=== PATIENT | female | born 1990 | race Caucasian/White ===

== ENCOUNTER 2023-07-07 03:06 | Emergency (ER) | payer MEDICAID, SELFPAY ==
[2023-07-07 03:07] VITALS: BP 129/74; PULSE 129; RESP 22; TEMP 37.1; O2SAT 96; BMI 37.3
--- NOTE | 2023-07-07 03:18 | RAD_ITS ---
INDICATION: chest pain EXAMINATION/TECHNIQUE: X-RAY - XR Chest 1 View COMPARISON: 01/05/2011. FINDINGS: LINES/DEVICES: None. LUNGS: No consolidation or evidence of an effusion. No evidence of edema or a pneumothorax. MEDIASTINUM AND CARDIOVASCULAR STRUCTURES: Cardiac silhouette is normal in size and contour. Mediastinum is unremarkable. BONES AND SOFT TISSUES: No acute abnormality. RAD/Chest 1 View (Portable) IMPRESSION: No evidence of cardiopulmonary disease. Electronically Signed: Raphael Veras DO at 4:18 EDT ,
--- NOTE | 2023-07-07 03:18 | EKG12_ITS ---
Test Reason : DYSRHYTHMIA Blood Pressure : / mmHG Vent. Rate : 116 BPM Atrial Rate : 116 BPM P-R Int : 124 ms QRS Dur : 080 ms QT Int : 306 ms P-R-T Axes : 053 037 003 degrees QTc Int : 425 ms Sinus tachycardia Otherwise normal ECG Confirmed by Lizandro Edmonds ([id number]), electronic news gathering editor LAKSHMI GAO ([id number]) on 07/09/2023 8:16:29 AM Referred By: LESTER Confirmed By:Lizandro Edmonds
[2023-07-07 03:35] VITALS: O2SAT 98
[2023-07-07 03:38] LABS: Absolute Lymphocyte Count 1.59 X10^3/uL (0.83-4.51); Absolute Neutrophil Count 14.3 X10^3/uL (2.0-7.7); Basophil# 0.06 X10^3/uL; Basophil% 0.3 % (0-1); Eosinophil# 0.17 X10^3/uL; Hematocrit 34.9 % (37-47); Hemoglobin 11.1 g/dL (12.0-15.0); Lymphocyte # 1.59 X10^3/ul (0.83-4.51); Lymphocyte % 9.1 % (19-41); Mean Corp Hgb Conc 31.8 g/dL (32-36); Mean Corpuscular Hgb 26.3 pg (27.0-32.0); Mean Corpuscular Volume 82.7 fL (81-99); Mean Platelet Vol. 9.8 fl (6.2-12.0); Monocyte# 1.32 X10^3/uL; Monocyte% 7.6 % (0-10); NRBC Flagged by Analyzer 0 % (0-5); Neutrophil # 14.26 X10^3/uL (2.7-7.7); Neutrophil % 81.6 % (47-70); Platelet Count 321 K/mm3 (150-450); RBC Distribution Width CV 13.4 % (11.6-14.6); RBC Distribution Width SD 40.4 fl (35.1-43.9); Red Blood Count 4.22 M/mm3 (4.2-5.4); White Blood Count 17.5 K/mm3 (4.4-11.0)
--- NOTE | 2023-07-07 03:43 | EX.ED.DYSGE1 ---
HPI History of Present Illness Chief Complaint: Cold Sx PFSH PFSH Home Medications albuterol sulfate 90 mcg/actuation aerosol inhaler 2 puff inhalation Q4H PRN PRN shortness of breath or wheezing 07/07/23 [History Last Taken Unknown] desogestrel 0.15 mg-ethinyl estradiol 0.03 mg tablet (Apri) 1 tab PO DAILY 07/07/23 [History Last Taken Unknown] Allergy/AdvReac Type Severity Reaction Status Date / Time azithromycin Allergy Hives Verified 07/07/23 03:16 Social History Smoking Status: Never smoker EXAM Physical Exam Const Vital Signs: 07/07/23 03:07 07/07/23 03:17 07/07/23 03:35 Temperature 98.7 F Temperature Source Oral Pulse Rate 129 H Respiratory Rate 22 H Respiratory Pattern Normal Blood Pressure 129/74 H Blood Pressure Mean 92 Pulse Ox 96 98 Oxygen Delivery Method Room Air Room Air 07/07/23 06:11 Temperature Temperature Source Pulse Rate 98 Respiratory Rate 18 Respiratory Pattern Blood Pressure 110/66 Blood Pressure Mean 80 Pulse Ox 94 Oxygen Delivery Method Room Air MDM MDM MDM Narrative Medical decision making narrative: HISTORY OF PRESENT ILLNESS: 33-year-old female presents with acute onset of chest pain in the setting of recent viral URI. She endorses headache, sore throat, cough and congestion. States she has sick contacts of former son at home. States prior to arrival she had sharp and pressure-like pain that radiated across her chest. Denies any syncope. Denies any unilateral leg swelling. The patient denies recent surgery in the last 4 weeks or immobilization in the last 3 days, denies previous diagnosis of DVT or PE, hemoptysis, unilateral leg swelling or malignancy with treatment the last 6 months or palliative. Notes she uses oral contraceptives of estrogen-based. Patient denies sudden onset of pain, no tearing sensation, no migratory symptoms, no new numbness, weakness or loss of sensation. Patient denies family history or personal history of Connective tissue disorders (Marfan's Syndrome, De Danlos etc). REVIEW OF SYSTEMS: Pertinent positives: chest pain, Sore throat, cough, congestion Pertinent negatives: Headache, syncope, focal weakness, vomiting, bleeding diathesis PHYSICAL EXAM: Nursing triage notes reviewed, Vital signs reviewed Constitutional: please see mdm HENT: MMM Eyes: Pupils equal round and reactive to light, Extraocular muscles intact Neck: No stridor, no JVD, full neck ROM Lungs: Clear to auscultation, No wheezing or rales. No increased work of breathing, no conversational dyspnea, no accessory muscle use, no nasal flaring. No respiratory distress noted Heart: Regular rate and rhythm, No murmurs, No rubs and No gallops, 2+ distal pulses (radial, femoral, posterior tibial) in all extremities Abdomen: Soft, there is no tenderness, rigidity, rebound or guarding, no obvious peritoneal signs, no palpable pulsatile abdominal masses, no auscultated abdominal bruit : No CVAT Extremities: No edema Neuro: No focal neurological deficits, cranial nerves II through XII intact, 5/5 strength in all extremities. Intact sensation to light touch in all extremities, 2+ reflexes bilateral patella tendons. Normal gait. No ataxia. Skin: No rash or lesions noted MEDICAL DECISION MAKING: Chief Complaint: Chest pain, viral URI symptoms External records reviewed: No recent [place] imaging of the chest Factors affecting care: None Social determinants of health: none History obtained from others: EMS Consults: none [facility] Narrative: Patient was initially afebrile but tachypneic and tachycardic. No focal cardiopulmonary normalities noted on exam. No pulse deficits, no stigmata of VTE. There is no clinical evidence to suggest aortic dissection with no pulse deficits, no focal neurologic deficits, pain is not ripping or tearing. I considered the following differential diagnosis: Arrhythmia, anemia, pneumonia, COVID, flu, RSV, PE, dissection I considered PE however thought this was less likely given patient's low risk Wells score, nonischemic EKG with no signs of right heart strain ALL IMAGES (IF OBTAINED) HAVE BEEN PERSONALLY REVIEWED AND INTERPRETED BY MYSELF. EKG was sinus tachycardia, normal axis, no intervals, no STEMI CBC with marked leukocytosis, mild anemia, no thrombocytopenia BMP without evidence of significant electrolyte abnormalities, no anion gap, no acute kidney injury. High-sensitivity troponin is negative, no evidence of myocardial ischemia BNP within normal I have personally reviewed the patient's chest x-ray. Chest x-ray is unremarkable for pulmonary edema, pneumothorax, pneumonia or focal cardiopulmonary abnormality. COVID-positive The synthesis of the patient's history, physical exam, labs images suggest COVID-19 infection. Low suspicion for life-limiting etiology the patient was hemodynamically stable. Initial tachycardia, tachypnea resolved after fluids and Toradol. Patient is appropriate discharge home. The patient and/or family, caregivers express understanding. The patient and/or family, caregivers agrees with the plan. Shared decision making: I will have a discussion with the patient and or visitors regarding risk/benefits of further testing or admission. They will be made aware of of the risk/benefits inherent in this decision they will be given the opportunity to voice understanding. Total critical care time today provided was at least 0 minutes. This excludes separately billable procedures. Critical care time (if documented) is secondary to the patient having high probability of clinically significant/life threatening deterioration in the patient's condition which required my urgent intervention. Impression: 1. Viral URI 2. Tachycardia 3. Tachypnea 4. COVID-19 Dispo: Discharge This note was generated with [employer] dictation software. It may contain incorrect words, spelling, and punctuation that were not noted in review of the chart prior to signing. Lab Data Labs: Laboratory Results - last 24 hr 07/07/23 03:30 WBC 17.5 H RBC 4.22 Hgb 11.1 L Hct 34.9 L MCV 82.7 MCH 26.3 L MCHC 31.8 L RDW Std Deviation 40.4 RDW Coeff of Louis 13.4 Plt Count 321 MPV 9.8 Immature Gran % (Auto) 0.400 Neut % (Auto) 81.6 H Lymph % (Auto) 9.1 L [place] % (Auto) 7.6 Eos % (Auto) 1.0 Baso % (Auto) 0.3 Absolute Neuts (auto) 14.3 H Absolute Lymphs (auto) 1.59 Nucleated RBC % 0 Sodium 137 Potassium 3.8 Chloride 104 Carbon Dioxide 24.0 Anion Gap 9 BUN 7 Creatinine 0.48 L Estim Creat Clear Calc 188.59 Est GFR (MDRD) Af Amer 192 Est GFR (MDRD) Non-Af 158 BUN/Creatinine Ratio 14.7 Glucose 143 H Calcium 8.8 Troponin I High Sens 4 B-Natriuretic Peptide 24.4 Radiography Diagnostic Testing: Clinical Impression(s) from Imaging Studies Chest X-Ray 07/07/23 03:18 IMPRESSION: No evidence of cardiopulmonary disease. Electronically Signed: Raphael Veras DO at 4:18 EDT , Discharge Plan Triage Chief Complaint: Cold Sx ED Provider: Favio Thomas Dx/Rx/DC Orders Instructions: Coronavirus Disease 2019 (COVID-19): Overview Prescriptions: No Action albuterol sulfate 90 mcg/actuation HFA aerosol inhaler 2 puff INHALATION Q4H PRN PRN (Reason: shortness of breath or wheezing) desogestrel-ethinyl estradiol [Apri] 0.15-0.03 mg tablet 1 tab PO DAILY Stand Alone Forms: ED Work / School Excuse Primary Care Provider: Rohit Woodward Referrals: Rohit Woodward MD [Primary Care Provider] - Activity Restrictions/Additional Instructions: Thank you for trusting us with your care today! Please take Tylenol (2 pills, 650 mg), ibuprofen (2 pills, 400 mg) every 6 hours as needed for pain and fever control. Please return to the emergency department if your symptoms change or worsen. Please follow with your primary care physician for further outpatient evaluation and management. Disposition Disposition: Home, Self Care Discharge Date/Time: 07/07/23 06:35
--- OUTSIDE RECORDS SUMMARY | 2023-07-07 03:43 | XMS RPT_ITS | CCD ---
Author Name Unknown Address [address] [place] [address] Organization [facility] Care Team Providers Care Peanut Vendor Name Role Phone BRAYDENRHONDA Jayla Unavailable Unavailable *SELF, REFERRED Unavailable Unavailable Nella Pineda Unavailable Unavailable Ronn Rohit PELAYO A Primary Care Provider [phone] Rohit Brody MD A Primary Care Provider [phone] Rohit Brody MD A Primary Care Provider [phone] Unavailable Primary Care Provider Unavailabl e RONN, ROHIT A Referring Unavailable RONN, ROHIT A Attending Unavailable RONN, ROHIT A Referring Unavailable RONN, ROHIT A Primary Care Unavailable RONN, ROHIT A Referring Unavailable RONN, ROHIT A Primary Care Unavailable GERRY ROE Referring Unavailable RONN, ROHIT A Primary Care Unavailable RONN, ROHIT A Primary Care Unavailable RONN, ROHIT A Attending Unavailable RONN, ROHIT A Primary Care Unavailable RONN, ROHIT A Primary Care Unavailable RONN, ROHIT A Primary Care Unavailable RONN, ROHIT A Attending Unavailable RONN, ROHIT A Primary Care Unavailable RONN, ROHIT A Primary Care Unavailable RONN, ROHIT A Referring Unavailable JUAN JUNE Attending Unavailable RONN, ROHIT A Primary Care Unavailable SELF Referring Unavailable RONN, ROHIT A Primary Care Unavailable HIRA BECKFORD Attending Unavailable RONN, ROHIT A Attending Unavailable RONN, ROHIT A Primary Care Unavailable Allergies Allergy Classification Reported Allergen(s) Allergy Type Date of Onset Reaction(s) Facility (20 sources) Acetaminophen / HYDROcodone; Translations: [HYDROCODONE-ACETA MINOPHEN] Drug Allergy 10-03-2019 [facility] (20 sources) Azithromycin; Translations: [AZITHROMYCIN] Drug Allergy 02-02-2013 [facility] (20 sources) Latex; Translations: [LATEX] Drug Allergy 02-02-[address] [facility] Work Phone: (20 sources) metFORMIN; Translations: [METFORMIN] Drug Allergy 08-10-2019 [facility] Work Phone: (5 sources) Penicillins; Translations: [PENICILLINS] Drug Allergy 05-06-2018 [facility] Work Phone: (20 sources) Penicillins Drug Allergy 05-06-2018 [facility] Work Phone: Medications Current Medications Medication Drug Class(es) Dates Sig (Normalized) Sig (Original) acetaminophen 325 mg / butalbital 50 mg / caffeine 40 mg oral tablet (12 sources) Barbiturate, Central Nervous System Stimulant, Methylxanthine Start: 05-15-2023 End: 06-14-2023 take 1 tablet by mouth every four hours as needed for headache acetaminophen 325 mg-caffeine 40 mg-butalbital 50 mg (FIORICET) per tablet Take 1 tablet by mouth every 4 hours as needed for headache. 30 tablet 0 05/15/2023 06/14/2023 Active Completed/Discontinued Medications Medication Drug Class(es) Dates Sig (Normalized) Sig (Original) [id number] 200 actuat albuterol 0.09 mg/actuat metered dose inhaler (20 sources) beta2-Adrenergic Agonist Start: 11-27-2022 take 2 puff(s) by mouth every four hours as needed albuterol HFA (PROVENTIL HFA, VENTOLIN HFA) 90 mcg/actuation inhaler Indications: Bronchitis TAKE 2 PUFFS BY MOUTH EVERY 4 HOURS NEEDED 18 Each 1 11/27/2022 Active Problems Active Problems Problem Classification Problem Date Documented Da te Episodic/Chronic Asthma (20 sources) Asthma; Translations: [Unspecified asthma, uncomplicated] 03-07-2021 Chronic Chronic obstructive pulmonary disease and bronchiectasis (4 sources) Bronchitis; Translations: [Bronchitis, not specified as acute or chronic] Episodic Deficiency and other anemia (20 sources) Anemia; Translations: [Anemia, unspecified] 03-07-2021 Episodic Deficiency and other anemia (2 sources) Iron deficiency anemia; Translations: [Iron deficiency anemia, unspecified] 03-18-2023 Episodic Diabetes mellitus without complication (1 source) Hyperglycemia, unspecified; Translations: [Hyperglycemia] Onset: 05-15-2023 Episodic E Codes: Adverse effects of medical drugs (20 sources) Penicillin adverse reaction; Translations: [Adverse effect of penicillins, initial encounter] 03-07-2021 Episodic Headache; including migraine (3 sources) Migraine; Translations: [Other migraine, not intractable, without status migrainosus] Onset: 12-20-2022 11-29-2022 Chronic Inflammation; infection of eye (except that caused by tuberculosis or sexually transmitteddisease) (2 sources) Acute infectious conjunctivitis; Translations: [Unspecified acute conjunctivitis, bilateral] Episodic Mood disorders (20 sources) Depressive disorder; Translations: [Depression] 03-07-2021 Chronic Nutritional deficiencies (1 source) Iron deficiency; Translations: [Iron deficiency] 01-14-2023 Episodic Other endocrine disorders (3 sources) Polycystic ovary syndrome; Translations: [Polycystic ovarian syndrome] Chronic Other female genital disorders (3 sources) Abnormal uterine bleeding; Translations: [Abnormal uterine and vaginal bleeding, unspecified] Chronic Other nutritional; endocrine; and metabolic disorders (20 sources) Body mass index 30+ - obesity; Translations: [Obesity, unspecified] Onset: 2018 03-01-2021 Chronic Other upper respiratory disease (2 sources) Allergic rhinitis due to pollen; Translations: [Allergic rhinitis due to pollen] 04-05-2023 Chronic Other upper respiratory infections (1 source) Pharyngitis; Translations: [Acute pharyngitis, unspecified] Episodic Past or Other Problems Problem Classification Problem Date Documented Date Episodic/Chronic Acute and chronic tonsillitis (20 sources) Acute tonsillitis; Translations: [Acute tonsillitis, unspecified] Onset: 05-07-2022 05-07-2022 Episodic Allergic reactions (19 sources) Allergy to penicillin; Translations: [Allergy status to penicillin] Onset: 05-07-2022 05-07-2022 Episodic Deficiency and other anemia (2 sources) Iron deficiency anemia, unspecified; Translations: [Iron deficiency anemia, unspecified iron deficiency anemia type] Onset: 03-07-2021 Episodic Deficiency and other anemia (1 source) Anemia, unspecified; Translations: [Anemia, unspecified type] Onset: 03-07-2021 Episodic Diabetes or abnormal glucose tolerance complicating ; childbirth; or the puerperium (20 sources) History of gestational diabetes mellitus; Translations: [Personal history of gestational diabetes] Onset: 03-01-2021 03-01-2021 Episodic Early or threatened labor (20 sources) Threatened premature labor - not delivered ; Translations: [False labor, unspecified] Onset: 03-01-2021 03-05-2021 Episodic Other complications of (20 sources) RhD negative; Translations: [Other specified related conditions, unspecified trimester] Onset: 03-01-2021 03-01-2021 Episodic Residual codes; unclassified (20 sources) H/O: depression; Translations: [Personal history of other complications of , childbirth and the puerperium] Onset: 06-30-2021 06-30-2021 Episodic Results Test Name Value Interpretation Reference Range Facil ity Vital Signs Date Time Vital Sign Value Performing Clinician Faci lity 06-17-2023 11:10-0500 Diastolic blood pressure 60 mm[Hg] Juan June MD Work Phone: [facility] 06-17-2023 11:10-0500 Heart rate 68 /min Juan June MD Work Phone: [facility] 06-17-2023 11:10-0500 SaO2% (BldA) [Mass fraction] 98 % Juan June MD Work Phone: [facility] 06-17-2023 11:10-0500 Systolic blood pressure 103 mm[Hg] Juan June MD Work Phone: [facility] 06-17-2023 10:40-0500 Respiratory rate 16 /min Juan June MD Work Phone: [facility] 06-17-2023 09:21-0500 Body temperature 98.1 [degF] Juan June MD Work Phone: [facility] 05-31-2023 18:18-0500 Body temperature 97.3 [degF] Prince Wormald PA-C Work Phone: [facility] 05-31-2023 18:18-0500 Body weight 98.15 kg Prince Wormald PA-C Work Phone: [facility] 05-31-2023 18:18-0500 Diastolic blood pressure 71 mm[Hg] Prince Wormald PA-C Work Phone: [facility] 05-31-2023 18:18-0500 Heart rate 98 /min Prince Wormald PA-C Work Phone: [facility] 05-31-2023 18:18-0500 SaO2% (BldA) [Mass fraction] 98 % Prince Wormald PA-C Work Phone: [facility] 05-31-2023 18:18-0500 Systolic blood pressure 105 mm[Hg] Prince Wormald PA-C Work Phone: [facility] 04-05-2023 17:19-0500 Body temperature 98.6 [degF] Karen Ball WHEEL PRESSER.INFORMATION BROKER Work Phone: [facility] 04-05-2023 17:19-0500 Body weight 95.25 kg Karen Ball WHEEL PRESSER.INFORMATION BROKER Work Phone: [facility] 04-05-2023 17:19-0500 Diastolic blood pressure 81 mm[Hg] Karen Ball WHEEL PRESSER.INFORMATION BROKER Work Phone: [facility] 04-05-2023 17:19-0500 Heart rate 60 /min Akren Ball WHEEL PRESSER.INFORMATION BROKER Work Phone: [facility] 04-05-2023 17:19-0500 SaO2% (BldA) [Mass fraction] 95 % Karen Ball WHEEL PRESSER.INFORMATION BROKER Work Phone: [facility] 04-05-2023 17:19-0500 Systolic blood pressure 118 mm[Hg] Karen Ball WHEEL PRESSER.INFORMATION BROKER Work Phone: [facility] 10-23-2022 18:58-0400 Body height 154.9 cm Karen Ball WHEEL PRESSER.INFORMATION BROKER Work Phone: [facility] 10-23-2022 18:58-0400 Body weight 89.81 kg Karen Ball WHEEL PRESSER.INFORMATION BROKER Work Phone: [facility] 10-23-2022 18:58-0400 Diastolic blood pressure 73 mm[Hg] Karen Ball WHEEL PRESSER.INFORMATION BROKER Work Phone: [facility] 10-23-2022 18:58-0400 Heart rate 80 /min Karen Ball WHEEL PRESSER.INFORMATION BROKER Work Phone: [facility] 10-23-2022 18:58-0400 Systolic blood pressure 109 mm[Hg] Karen Ball WHEEL PRESSER.INFORMATION BROKER Work Phone: [facility] 04-10-2022 12:59-0500 Body height 154.9 cm Aleida Rytel WHEEL PRESSER.INFORMATION BROKER Work Phone: [facility] 04-10-2022 12:59-0500 Body temperature 98.1 [degF] Aleida Rytel WHEEL PRESSER.INFORMATION BROKER Work Phone: [facility] 04-10-2022 12:59-0500 Body weight 87.82 kg Aleida Rytel WHEEL PRESSER.INFORMATION BROKER Work Phone: [facility] 04-10-2022 12:59-0500 Diastolic blood pressure 66 mm[Hg] Aleida Rytel WHEEL PRESSER.INFORMATION BROKER Work Phone: [facility] 04-10-2022 12:59-0500 Heart rate 76 /min Aleida Rytel WHEEL PRESSER.INFORMATION BROKER Work Phone: [facility] 04-10-2022 12:59-0500 Respiratory rate 18 /min Aleida Rytel WHEEL PRESSER.INFORMATION BROKER Work Phone: [facility] 04-10-2022 12:59-0500 SaO2% (BldA) [Mass fraction] 98 % Aleida Rytel WHEEL PRESSER.INFORMATION BROKER Work Phone: [facility] 04-10-2022 12:59-0500 Systolic blood pressure 99 mm[Hg] Aleida Mauricio APRN.JESUS Work Phone: [facility] Encounters Encounter Date Encounter Type Care Provider Facility Start: 06-22-2023 Refvlad franks APRN.JESUS Work Phone: [facility] Procedures Date Procedure Procedure Detail Performing Clinician Start: 06-17-2023 Colonoscopy flx dx w /collj spec when pfrmd Rohit Brody MD Work Phone: Start: 03-20-2023 Assay of ferritin Vianey Brody MD Work Phone: Start: 03-20-2023 COMPLETE BLOOD COUNT WITH DIFFERENTIAL Rohit Brody MD Work Phone: Start: 10-23-2022 STREP A MOLECULAR (POC) [facility] Provider Start: 03-07-2021 Antibody screen Plan of Treatment Date Care Activity Detail Author Start: 02-13-2031 Urine microalbumin profile [facility] Start: 05-04-2026 PAP TESTING PAP TESTING [facility] Start: 05-04-2026 Screening for malign ant neoplasm of cervix Pap Testing [facility] Start: 05-15-2024 Annual PCP Team Extractor And Wringer Operator blanquita Disease Visit Annual PCP Team Chronic Disease Visit [facility] Start: 05-15-2024 Covid-19 Vaccine ( season) Covid-19 Vaccine ( season) [facility] Immunizations Immunization Date Immunization Notes Care Provider Fa juliaty 03-07-2021 RHO(D) immune globul in- IV or IM Hira Beckford MD Work Phone: [facility] 02-13-2021 influenza, injectabl e, quadrivalent, contains preservative Hira Beckford MD Work Phone: [facility] 02-13-2021 tetanus toxoid, redu mercedes diphtheria toxoid, and acellular pertussis vaccine, adsorbed Hira Beckford MD Work Phone: [facility] 02-13-2021 influenza virus vaccine, unspecified formulation Rohit Brody MD Work Phone: [facility] 12-28-2020 RHO(D) immune globul in- IV or IM Hira Beckford MD Work Phone: [facility] 10-22-2020 COVID-19 vaccine, ag e 12+ yr (PFIZER-BIONTECH - PURPLE TOP) Hira Beckford MD Work Phone: [facility] 09-29-2020 COVID-19 vaccine, ag e 12+ yr (PFIZER-BIONTECH - PURPLE TOP) Hira Beckford MD Work Phone: [facility] 02-20-2020 influenza, seasonal, injectable Hira Beckford MD Work Phone: [facility] 10-04-2019 RHO(D) immune globul in- IV or IM Hira Beckford MD Work Phone: [facility] 09-07-2019 tetanus toxoid, redu mercedes diphtheria toxoid, and acellular pertussis vaccine, adsorbed Hira Beckford MD Work Phone: [facility] 07-29-2019 RHO(D) immune globul in- IV or IM Hira Beckford MD Work Phone: [facility] 03-11-2019 RHO(D) immune globul in- IV or IM Hira Beckford MD Work Phone: [facility] 02-07-2019 influenza, injectabl e, quadrivalent, contains preservative Hira Beckford MD Work Phone: [facility] 01-05-2019 tetanus toxoid, redu mercedes diphtheria toxoid, and acellular pertussis vaccine, adsorbed Hira Beckford MD Work Phone: [facility] 02-19-2018 influenza virus vaccine, unspecified formulation Hira Beckford MD Work Phone: [facility] Work Phone: Payers Date Payer Category Payer Medicaid [id number] 2020 Medicaid [employer] [id number] 2020-Present [phone] [address] [place] [address] Medicaid [id number] 2020 Medicaid [id number] 2013 Unknown [id number] 1989 Unknown [id number] Unknown [id number] Social History Date Type Detail Facility Start: 02-02-2013 End: 01-14-2022 Tobacco smoking status FLIS Never smoked tobacco [facility] Start: 02-02-2013 End: 01-14-2022 Tobacco use and exposure Smokeless tobacco non-user [facility] Start: 07-15-2021 End: 06-17-2023 Alcohol intake Ex-drinker (finding) [facility] Start: 03-19-2020 End: 06-20-2022 History SDOH Alcohol Frequency 2 [facility] Start: 03-19-2020 End: 06-20-2022 History SDOH Alcohol Std Drinks 1 [facility] Start: 06-01-2019 End: 06-13-2019 History SDOH Social Connections Phone 5 [facility] Start: 06-01-2019 End: 06-20-2022 History SDOH Social Connections Baptism 3 [facility] Start: 06-01-2019 End: 06-20-2022 History SDOH Physical Activity DPW 0 [facility] Start: 05-31-2019 Education 15 [facility] Start: 1990 Sex Assigned At Female [facility] Start: 07-05-2021 End: 07-15-2021 Exposure to SARS-CoV-2 (event) Not sure [facility] Start: 06-20-2022 History SDOH Social Connections Phone 98 [facility] Start: 06-20-2022 History SDOH Social Connections Living 6 [facility] Start: 06-20-2022 End: 11-29-2022 History of Social function [facility] Start: 06-20-2022 End: 11-29-2022 Social connection and isolation panel [facility] In a typical week, h ow many times do you talk on the telephone with family, friends, or neighbors? Patient refused [facility] Do you belong to any clubs or organizations such as latter-day groups, unions, fraternal or athletic groups, or school groups? No [facility] Are you now , , , , never or living with a partner? [facility] How often to you hav e a drink containing alcohol? Monthly or less [facility] How many standard dr inks containing alcohol do you have on a typical day? 1 or 2 [facility] How often do you hav e 6 or more drinks on 1 occasion? Never [facility] Do you feel stress - tense, restless, nervous, or anxious, or unable to sleep at night because your mind is troubled all the time - these days [OSQ] Only a little [facility] (I/We) worried arsh er (my/our) food would run out before (I/we) got money to buy more. DK or Refused [facility] Start: 07-01-2018 Gender identity Identifies as female gender (finding) [facility] Start: 1990 Sex Assigned At Not on file [facility] Start: 06-17-2023 Alcohol Comment occasionally [facility] Clinical Notes 01-10-2021 to 06-24-2023 Telephone Encounter - Barbara Reynoso LPN - 06/24/2023 10:52 AM Viki Greene RN - 06/17/2023 10:30 AM Viki Greene RN - 06/17/2023 10:10 AM ESTPatient Instructions Note Date & Type Note Facility 06-24-2023 Miscellaneous Notes Last appointment: 05/15/23 Next appointment: n/a Pharmacy verified in Epic. Refill(s) requested: Requested Prescriptions Pending Prescriptions Disp Refills fluticasone (FLONASE) 50 mcg/actuation nasal spray [Pharmacy Med Name: FLUTICASONE PROP 50 MCG SPRAY] 48 mL 1 Sig: SPRAY 1 SPRAY INTO EACH NOSTRIL EVERY DAY Order(s) pended. Please advise. Barbara Reynoso LPN, [facility] documented in this encounter [facility] 06-17-2023 Note HNO ID: [id number] Author: VIKI RAMIREZ RN Service: ? Author Type: Registered Nurse Type: Nursing Progress Note Filed: 06/17/2023 10:37 Note Text: Resting quietly. Passing flatus. Abdomen soft. Denies complaints. Viki Ramirez RN [facility] 06-17-2023 Nurse Note Resting quietly. Passing flatus. Abdomen soft. Denies complaints. Viki Ramirez RN Arrived in phase II via cart. Left lateral position. Sedated, but responds to verbal stimuli. Color normal; skin warm and dry. Respirations wnl and unlabored. Abdomen soft and with + bowel sounds in quads X 4. Patient resting comfortably. Viki Ramirez RN documented in this encounter [facility] 06-17-2023 History and physical note Karen Fernandez is a 32 year old female presenting for Physical. 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 The frequency is settling down. But when they come on she has problems stopping them. Fioricet helps. Taking fioricet once per month. Has a headache 2-3 times per week. Imitrex didn't help. Gets nauseated with headaches. Hasn't tried anything else for the headaches. On OCP. Sees extension specialist. Hx of iron def anemia. Iron caused her to be constipated. Father has diverticulosis. No blood in stool. Sertraline working well for anxiety. Mood stable over all. Last 10 Encounter Wt Readings: Date: Wt: 05/15/2023 96.1 kg (211 lb 13.8 oz) 04/05/2023 95.3 kg (210 lb) 10/23/2022 89.8 kg (198 lb) 09/18/2022 88 kg (194 lb) 05/07/2022 86.2 kg (190 lb) 05/06/2022 86.2 kg (190 lb) 04/10/2022 87.8 kg (193 lb 9.6 oz) 01/14/2022 83 kg (183 lb) 10/13/2021 86.2 kg (190 lb) 07/15/2021 83.9 kg (185 lb) ASSESSMENT: (Z00.00) Well adult exam (primary encounter diagnosis) (D50.9) Iron deficiency anemia, unspecified iron deficiency anemia type (R73.9) Hyperglycemia (J45.20) Mild intermittent asthma without complication (Z87.59, Z86.59) History of depression (F41.9) Anxiety PLAN: Discussed preventative health care Recheck iron levels. Still thinking that it is likely from heavy periods but will get colonoscopy to ensure no masses or polyps Check A1c. Hx of diabetes with prior Continue meds for asthma. Needing inhaler rarely Mood stable. Refill meds Try zofran for migraines and nausea HISTORIES FAMILY HISTORY FAMILY HISTORY Problem Relation Age of Onset Thyroid Mother hypothyroid other (fibroid) Mother uterine other (thyroidectomy) Mother Diabetes Maternal Grandmother type 2 Diabetes Paternal Grandmother type 2 Breast Cancer Other 2 maternal great aunts w/ breast cancer Thyroid Sister hypothyroid Asthma Father PAST MEDICAL HISTORY PAST MEDICAL HISTORY Diagnosis Date Asthma Depression anxiety per pt Endometriosis PCOS (polycystic ovarian syndrome) S/P x2 PAST SURGICAL HISTORY PAST SURGICAL HISTORY Procedure Laterality Date ANESTH, SECTION SECTION HX 08/31/2008, 09/2019 x2 CRYOCAUTERY OF CERVIX 07/2012 IUD REMOVAL 2009 was in lower uterine segment LAPAROSCOPY, APPENDECTOMY 06/2011 (per pt-endometriosis excision- no record of this on record review) and appy; Dr. Nava TONSILLECTOMY HX age 6 SOCIAL HISTORY Social History Tobacco Use Smoking status: Never Smokeless tobacco: Never Vaping Use Vaping Use: Never used Substance Use Topics Alcohol use: Not Currently Drug use: No Allergies: ALLERGIES ALLERGIES Allergen Reactions Latex Rash Latex skin tests were negative on October 28, 2018. Latex specific IgE level will be obtained to evaluate further for possible IgE-mediated latex hypersensitivity. Metformin GI Upset Penicillins Hives Allergy skin tests to penicillin were negative on 10/28/18. On 11/04/18, patient c/o generalized itching without visible skin rash 25 minutes after taking a test dose of amoxicillin. Sxs resolved without treatment. Although overall the patient is at low risk for a severe, immediate, IgE-mediated reaction to penicillin, recommend that she take the first dose of a course of a penicillin antibiotic in the allergy dept with a 1 hr in-office observation period afterwards as a precaution. Zithromax [Azithrom* Hives Vicodin [Hydrocodon* GI Upset Medications: CURRENT MEDICATIONS APRI 0.15-0.03 mg per tablet take 1 tablet by mouth every day cetirizine (ZYRTEC) 10 mg tablet Take 1 tablet by mouth once daily. fluticasone (FLONASE ALLERGY RELIEF) 50 mcg/actuation nasal spray Use 1 Emerson in each nostril once daily. ferrous sulfate 325 mg (65 mg iron) tablet TAKE 1 TABLET BY MOUTH EVERY OTHER DAY albuterol HFA (PROVENTIL HFA, VENTOLIN HFA) 90 mcg/actuation inhaler TAKE 2 PUFFS BY MOUTH EVERY 4 HOURS NEEDED acetaminophen 325 mg-caffeine 40 mg-butalbital 50 mg (FIORICET) per tablet Take 1 tablet by mouth every 4 hours as needed for headache. sertraline (ZOLOFT) 100 mg tablet TAKE 1 TABLET BY MOUTH ONCE DAILY. sertraline (ZOLOFT) 50 mg tablet Take 1 tablet by mouth once daily. Combine with the 100 mg Zoloft dose. SUMAtriptan (IMITREX) 100 mg tablet Take 1 tablet by mouth as needed. (Patient not taking: Reported on 04/05/2023) REVIEW OF SYSTEMS GENERAL: No weight loss, malaise or fevers PHYSICAL EXAM BP 114/78 Pulse 80 Temp 36.1 C (97 F) Resp 16 Ht 154.9 cm (5' 1 ) Wt 96.1 kg (211 lb 13.8 oz) LMP 07/07/2021 SpO2 99% BMI 40.03 kg/m General Appearance: Well appearing, alert, in no acute distress, well-hydrated, well nourished.. Rohit Brody MD UPDATED HISTORY AND PHYSICAL EXAMINATION SERVICE DATE: 06/17/2023 SERVICE TIME: 9:40 AM PHYSICAL EXAM MUST BE COMPLETED ON ADMISSION The History and Physical (completed in the past 30 days) has been reviewed and the patient has been examined. The contents accurately reflect the patient's condition with the following additions or revisions since the H&P was completed. Examination indicates no changes. This H&P can be found in the attached. SIGNATURE: Juan June III, MD PATIENT NAME: Karen Fernandez DATE: June 17, 2023 TIME: 9:40 AM documented in this encounter [facility] 05-31-2023 Note HNO ID: [id number] Author: PRINCE HERNÁNDEZ PA-C Service: ? Author Type: Physician Mold Bunch Trimmer Type: Progress Notes Filed: 05/31/2023 18:35 Note Text: Subjective Karen Fernandez is a 32 year old female with a past medical history of asthma and depression who presents to [facility] care today for evaluation of left eye redness and discharge. She states that she was diagnosed with pinkeye last week and given a prescription for Cipro ophthalmic drops. She states that she has been using these but her symptoms have not completely resolved. She also endorses some cough and congestion over the past couple of days. She states that today she noticed that she started to have some shortness of breath and therefore she is concerned she may be having an asthma exacerbation. Review of Systems Constitutional: Negative for chills and diaphoresis. HENT: Positive for congestion. Eyes: Positive for discharge (left) and redness (left). Respiratory: Positive for cough and shortness of breath. All other systems reviewed and are negative. Objective LMP 05/14/2023 (Exact Date) Physical Exam Vitals reviewed. Constitutional: General: She is not in acute distress. Appearance: Normal appearance. She is normal weight. She is not ill-appearing or toxic-appearing. Comments: The patient appears to be non-toxic, in no acute distress, and resting comfortably on the table. HENT: Head: Normocephalic and atraumatic. Eyes: General: Left eye: Discharge present. Conjunctiva/sclera: Left eye: Left conjunctiva is injected. Cardiovascular: Rate and Rhythm: Normal rate and regular rhythm. Heart sounds: Normal heart sounds. No murmur heard. No friction rub. No gallop. Pulmonary: Effort: Pulmonary effort is normal. No respiratory distress. Breath sounds: Normal breath sounds. No wheezing. Musculoskeletal: General: Normal range of motion. Cervical back: Normal range of motion. Skin: General: Skin is warm and dry. Findings: No erythema or rash. Neurological: General: No focal deficit present. Mental Status: She is alert and oriented to person, place, and time. Mental status is at baseline. Psychiatric: Mood and Affect: Mood normal. Behavior: Behavior normal. Thought Content: Thought content normal. Assessment and Plan Examination of the left eye reveals conjunctival injection and yellow discharge consistent with acute bacterial conjunctivitis. Lungs are clear to auscultation bilaterally however given patient's history of asthma, she will be treated with prednisone for asthma exacerbation. Patient counseled regarding suspected diagnosis and given prescriptions for Polytrim ophthalmic solution and prednisone. Advised to follow-up with her primary care provider as needed for any new or worsening symptoms ASSESSMENT/PLAN: 1. Bacterial conjunctivitis - ICD9: 372.39, 041.9, ICD10: H10.9 (primary diagnosis) - POLYMYXIN B SULFATE 10,000 UNIT-TRIMETHOPRIM 1 MG/ML EYE DROPS 2. Mild persistent asthma with exacerbation - ICD9: 493.92, ICD10: J45.31 - PREDNISONE 20 MG TABLET Medical Decision Making: Problems: Low: Acute, uncomplicated illness or injury Risk: Minimal: Minimal risk from testing/treatment Moderate: Drug management Medical Decision Making Level: 3 - Low I spent a total of 20 minutes on the date of the service which included preparing to see the patient, [id number] patient care, completing clinical documentation, performing a medically appropriate examination, counseling and educating the patient/family/caregiver, and ordering medications, tests, or procedures. Prince Hernández PA-C [facility] 05-31-2023 Instructions Prince Hernández PA-C - 05/31/2023 6:30 PM EST [facility] PATIENT INFO CONJUNCTIVITIS OVERVIEW Conjunctivitis, also called pinkeye , is defined as an inflammation of the conjunctiva. The conjunctiva is the thin membrane that lines the inner surface of the eyelids and the whites of the eyes (called the sclera). Conjunctivitis can affect children and adults. The most common symptoms of conjunctivitis include a red eye and discharge. There are many potential causes of conjunctivitis, including bacterial or viral infections, allergies, or a non-specific condition (eg, a foreign body in the eye). All types of conjunctivitis cause a red eye, although not everyone with a red eye has conjunctivitis. TYPES OF CONJUNCTIVITIS There are four main types of conjunctivitis: bacterial, viral, allergic, and non-specific. Most cases of infectious conjunctivitis are viral in adults and children; however, bacterial conjunctivitis is more common in children than in adults. Viral conjunctivitis -- Viral conjunctivitis is typically caused by a virus that can also cause the common cold. A person may have symptoms of conjunctivitis alone, or as part of a general cold syndrome, with swollen lymph nodes (glands), fever, a sore throat, and runny nose. Viral conjunctivitis is highly contagious. It is spread by contact, usually with objects which have come into contact with the infected person's eye secretions. As examples, the virus can be transmitted when an infected person touches their eye and then touches another surface (eg, door handle) or shares an object that has touched their eye (eg, a towel or pillow case). The most common symptoms of viral conjunctivitis include redness, watery or mucus discharge, and a burning, bruce, or gritty feeling in one eye. Some people have morning crusting followed by watery discharge, perhaps with some scant mucus discharge throughout the day. The second eye usually becomes infected within 24 to 48 hours. There is no cure for viral conjunctivitis. Recovery can begin within days, although the symptoms frequently get worse for the first three to five days, with gradual improvement over the following one to two weeks for a total course of two to three weeks. Some people experience morning crusting that continues for up to two weeks after the initial symptoms, although the daytime redness, irritation, and tearing should be much improved. Bacterial conjunctivitis -- Bacterial conjunctivitis is highly contagious, often affecting multiple family members or children within a classroom. Bacterial conjunctivitis is spread by contact, usually with objects which have come into contact with the infected person's eye secretions. As examples, the virus can be transmitted when an infected person touches their eye and then touches another surface (eg, door handle) or shares an object that has touched their eye (eg, a towel or pillow case). The most common symptoms of bacterial conjunctivitis include redness and thick discharge from one eye, although both eyes can become infected. The discharge may be yellow, white, or green, and it usually continues to drain throughout the day. The affected eye often is stuck shut in the morning. Most types of bacterial conjunctivitis resolve quickly and cause no permanent damage when treated with antibiotic eye drops or ointment Non-specific conjunctivitis -- It is possible to develop a red eye and discharge that is not caused by an infection or allergy. The most common causes include one of the following. People with a dry eye may have chronic or intermittent redness or discharge. A person whose eyes are irrigated after a chemical splash may have redness and discharge. A person with a foreign body (eg, dust, eyelash) in the eye may have redness and discharge for 12 to 24 hours after the object is removed. All of these problems generally improve spontaneously within 24 hours. CONJUNCTIVITIS TREATMENT The treatment of conjunctivitis depends upon the cause. For this reason, it is important to have the correct diagnosis before treatment begins. Viral conjunctivitis treatment -- A topical antihistamine/decongestant eye drop may help to relieve the itching and irritation of viral conjunctivitis. These drops are available without a prescription in most pharmacies. However, particular care must be taken to avoid spreading viral infections from one eye to the other -- apply drops only to affected eye and wash hands thoroughly after application. Similar to cold medicines, this treatment may reduce the symptoms but does not shorten the course of the infection. Another option is to use warm or cool compresses, as needed. The irritation and discharge may get worse for three to five days before getting better, and symptoms can persist for two to three weeks. Bacterial conjunctivitis treatment -- Bacterial conjunctivitis is usually treated with an antibiotic eye drop or ointment. When started early, treatment helps to shorten the duration of symptoms, although most cases do resolve spontaneously if no treatment is used. Adults -- Adults are usually treated with an antibiotic eye drop or ointment for five to seven days. Redness, irritation, and eye discharge should begin to improve within 24 to 48 hours. If there is no improvement or if the condition worsens within this time, the person should be evaluated by an mixing pan tender. Contact lens wearers -- People who wear contact lenses should be evaluated by a healthcare provider before treatment begins; this is to confirm the diagnosis of conjunctivitis and to be sure that another, more serious condition related to contact lens use (an infection of the cornea), is not present. People who wear contact lenses should avoid wearing the lenses during the first 24 hours of treatment, or until the eye is no longer red. The contact case should be thrown away and the contacts disinfected overnight or replaced (if disposable). Return to work/school -- The safest approach to avoid spreading viral and bacterial conjunctivitis to others is to stay home until there is no longer any discharge from the eye(s). However, this is not practical for most students and for those who work outside the home. Most daycare centers and schools require that students receive 24 hours of eye drops or ointment before returning to school. This treatment helps to prevent the spread of bacterial conjunctivitis, but is not necessary or helpful for children with viral conjunctivitis. Viral conjunctivitis is similar to a cold because it spreads easily between people. Younger children, who may not remember to wash their hands or avoid touching their eyes, should probably not attend school until the discharge has resolved. Older students or adults may choose to attend school/work, although they should limit close contact with others. In addition, adults who have contact with the very old, the very young, and people with a weakened immune system should limit contact with these susceptible individuals. Non-specific conjunctivitis treatment -- The conjunctiva heals quickly after it is injured, and non-specific conjunctivitis usually resolves within a few days without any treatment. However, the eye may feel better faster when it is treated with a lubricant, such as drops or ointments. These products are available without a prescription in most pharmacies. Preservative-free preparations are more expensive and are necessary only for people with a severe case of dry eye and those who are allergic to preservatives. Lubricant drops can be used as often as hourly with no side effects. The ointment provides longer lasting relief but blurs vision temporarily. For this reason, some people use ointment only at bedtime. It may be worthwhile to switch brands if one brand of drop or ointment is irritating, since each preparation contains different active and inactive ingredients and preservatives. Antibiotic or steroid eye drops/ointments are not recommended unless there is a specific reason they are needed (eg, a bacterial infection or inflammatory condition). Using these treatments when they are not needed can lead to serious complications. If the symptoms of conjunctivitis do not improve within two weeks, an examination with an mixing pan tender may be recommended. CONJUNCTIVITIS PREVENTION Bacterial and viral conjunctivitis are both highly contagious and spread by direct contact with secretions or contact with contaminated objects. Simple hygiene measures can help minimize transmission to others. Adults or children with bacterial or viral conjunctivitis should not share handkerchiefs, tissues, towels, cosmetics, or bed sheets/pillows with uninfected family or friends. Hand washing is an essential and highly effective way to prevent the spread of infection. Hands should be wet with water and plain soap, and rubbed together for 15 to 30 seconds. It is not necessary to use antibacterial hand soap. Teach children to wash their hands before and after eating and after touching the eyes, coughing, or sneezing. Alcohol-based hand rubs are a good alternative for disinfecting hands if a sink is not available. Hand rubs should be spread over the entire surface of hands, fingers, and wrists until dry, and may be used several times. These rubs can be used repeatedly without skin irritation or loss of effectiveness. documented in this encounter [facility] 05-31-2023 History of Presen t illness Narrative Subjective Karen Fernandez is a 32 year old female with a past medical history of asthma and depression who presents to express care today for evaluation of left eye redness and discharge. She states that she was diagnosed with pinkeye last week and given a prescription for Cipro ophthalmic drops. She states that she has been using these but her symptoms have not completely resolved. She also endorses some cough and congestion over the past couple of days. She states that today she noticed that she started to have some shortness of breath and therefore she is concerned she may be having an asthma exacerbation. Review of Systems Constitutional: Negative for chills and diaphoresis. HENT: Positive for congestion. Eyes: Positive for discharge (left) and redness (left). Respiratory: Positive for cough and shortness of breath. All other systems reviewed and are negative. Objective LMP 05/14/2023 (Exact Date) Physical Exam Vitals reviewed. Constitutional: General: She is not in acute distress. Appearance: Normal appearance. She is normal weight. She is not ill-appearing or toxic-appearing. Comments: The patient appears to be non-toxic, in no acute distress, and resting comfortably on the table. HENT: Head: Normocephalic and atraumatic. Eyes: General: Left eye: Discharge present. Conjunctiva/sclera: Left eye: Left conjunctiva is injected. Cardiovascular: Rate and Rhythm: Normal rate and regular rhythm. Heart sounds: Normal heart sounds. No murmur heard. No friction rub. No gallop. Pulmonary: Effort: Pulmonary effort is normal. No respiratory distress. Breath sounds: Normal breath sounds. No wheezing. Musculoskeletal: General: Normal range of motion. Cervical back: Normal range of motion. Skin: General: Skin is warm and dry. Findings: No erythema or rash. Neurological: General: No focal deficit present. Mental Status: She is alert and oriented to person, place, and time. Mental status is at baseline. Psychiatric: Mood and Affect: Mood normal. Behavior: Behavior normal. Thought Content: Thought content normal. Assessment and Plan Examination of the left eye reveals conjunctival injection and yellow discharge consistent with acute bacterial conjunctivitis. Lungs are clear to auscultation bilaterally however given patient's history of asthma, she will be treated with prednisone for asthma exacerbation. Patient counseled regarding suspected diagnosis and given prescriptions for Polytrim ophthalmic solution and prednisone. Advised to follow-up with her primary care provider as needed for any new or worsening symptoms ASSESSMENT/PLAN: 1. Bacterial conjunctivitis - ICD9: 372.39, 041.9, ICD10: H10.9 (primary diagnosis) - POLYMYXIN B SULFATE 10,000 UNIT-TRIMETHOPRIM 1 MG/ML EYE DROPS 2. Mild persistent asthma with exacerbation - ICD9: 493.92, ICD10: J45.31 - PREDNISONE 20 MG TABLET Medical Decision Making: Problems: Low: Acute, uncomplicated illness or injury Risk: Minimal: Minimal risk from testing/treatment Moderate: Drug management Medical Decision Making Level: 3 - Low I spent a total of 20 minutes on the date of the service which included preparing to see the patient, [id number] patient care, completing clinical documentation, performing a medically appropriate examination, counseling and educating the patient/family/caregiver, and ordering medications, tests, or procedures. Prince Hernández PA-C documented in this encounter [facility] 05-20-2023 Note HNO ID: [id number] Author: HIRA BECKFORD MD Service: ? Author Type: Physician Type: Progress Notes Filed: 05/20/2023 15:38 Note Text: Karen Fernandez is a 32 year old who presents for her annual gynecologic exam. 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 Delivered a viable BOY infant on REPEAT CONDOMS DESIRED, NO VASECTOMY. Then APRI 30 UG. HX MIRENA Cycle every 28 days Flow 7 days 5 DAYS HEAVY, 15 PADS PER DAY ON HEAVIEST. Contraception: oral contraceptives Last Pap: 2021 History of abnormal pap: no History of STDS No Last mammogram: History of abnormal mammogram: no PAST MEDICAL HISTORY Diagnosis Date Asthma Depression anxiety per pt Endometriosis PCOS (polycystic ovarian syndrome) S/P x2 PAST SURGICAL HISTORY Procedure Laterality Date ANESTH, SECTION SECTION HX 08/31/2008, 09/2019 x2 CRYOCAUTERY OF CERVIX 07/2012 IUD REMOVAL 2009 was in lower uterine segment LAPAROSCOPY, APPENDECTOMY 06/2011 (per pt-endometriosis excision- no record of this on record review) and appy; Dr. Nava TONSILLECTOMY HX age 6 FAMILY HISTORY Problem Relation Age of Onset Thyroid Mother hypothyroid other (fibroid) Mother uterine other (thyroidectomy) Mother Diabetes Maternal Grandmother type 2 Diabetes Paternal Grandmother type 2 Breast Cancer Other 2 maternal great aunts w/ breast cancer Thyroid Sister hypothyroid Asthma Father Social History Tobacco Use Smoking status: Never Smokeless tobacco: Never Vaping Use Vaping Use: Never used Substance Use Topics Alcohol use: Not Currently Drug use: No REVIEW OF SYSTEMS Bladder: No burning with urination, blood in urine or incontinence Bowel: No blood in stool, pain with BM, tarry stool, persistent diarrhea or constipation Breast: No breast lumps, nipple d/c, overlying skin changes, redness or skin retraction EXAM: pleasant,well developed,well nourished,white female in no apparent distress HEENT: WNL NECK: Full range of motion,no adenopathy,thyroid normal DERMATOLOGY:Without lesions, Non-icteric, non-hirsute BREAST: soft, non-tender, symmetric, no dominant mass, normal nipple-areolar complex, no lymphadenopathy, and no nipple discharge CHEST: Clear to auscultation,Normal inspiratory effort CARDIAC:Regular rate, rhythm,No murmur, rub, gallop ABDOMEN: Soft,non-tender,no hernia,No masses, hepatosplenomegaly,No lymphadenopathy PELVIC: external genitalia normal, normal Bartholin's glands, urethra, Anawalt's glands, no vulvar lesions, no cervical lesions, normal discharge, well estrogenized, good vaginal support, vault clean with normal discharge, normal appearing perineal body and perianal region BIMANUAL: no cervical motion tenderness, no adnexal masses, and no pelvic masses RECTAL: deferred. NEURO: alert and oriented x3,exam grossly non-focal EXTREMITIES: Warm,No cyanosis, clubbing,No edema,nontender ASSESSMENT: 1) Normal annual exam. 2) MENORRHAGIA ON APRI 3) SWITCH TO OCELLA // ROTATION 4) PLAN: 1) Pap done 2020 HPV 2) SBE reviewed, Mammogram ordered 3) Nutrition, exercise and routine health maintenance exams reviewed 4) CYCLE F/U 3-4 MOS 5) HX IUD MIGRATION Hira Beckford MD [facility] 05-15-2023 Note HNO ID: [id number] Author: ROHIT BRODY MD Service: ? Author Type: Physician Type: Progress Notes Filed: 05/15/2023 09:44 Note Text: ESTABLISHED PATIENT Karen Fernandez is a 32 year old female presenting for Physical. 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 The frequency is settling down. But when they come on she has problems stopping them. Fioricet helps. Taking fioricet once per month. Has a headache 2-3 times per week. Imitrex didn't help. Gets nauseated with headaches. Hasn't tried anything else for the headaches. On OCP. Sees extension specialist. Hx of iron def anemia. Iron caused her to be constipated. Father has diverticulosis. No blood in stool. Sertraline working well for anxiety. Mood stable over all. Last 10 Encounter Wt Readings: Date: Wt: 05/15/2023 96.1 kg (211 lb 13.8 oz) 04/05/2023 95.3 kg (210 lb) 10/23/2022 89.8 kg (198 lb) 09/18/2022 88 kg (194 lb) 05/07/2022 86.2 kg (190 lb) 05/06/2022 86.2 kg (190 lb) 04/10/2022 87.8 kg (193 lb 9.6 oz) 01/14/2022 83 kg (183 lb) 10/13/2021 86.2 kg (190 lb) 07/15/2021 83.9 kg (185 lb) ASSESSMENT: (Z00.00) Well adult exam (primary encounter diagnosis) (D50.9) Iron deficiency anemia, unspecified iron deficiency anemia type (R73.9) Hyperglycemia (J45.20) Mild intermittent asthma without complication (Z87.59, Z86.59) History of depression (F41.9) Anxiety PLAN: Discussed preventative health care Recheck iron levels. Still thinking that it is likely from heavy periods but will get colonoscopy to ensure no masses or polyps Check A1c. Hx of diabetes with prior Continue meds for asthma. Needing inhaler rarely Mood stable. Refill meds Try zofran for migraines and nausea HISTORIES FAMILY HISTORY Problem Relation Age of Onset Thyroid Mother hypothyroid other (fibroid) Mother uterine other (thyroidectomy) Mother Diabetes Maternal Grandmother type 2 Diabetes Paternal Grandmother type 2 Breast Cancer Other 2 maternal great aunts w/ breast cancer Thyroid Sister hypothyroid Asthma Father PAST MEDICAL HISTORY Diagnosis Date Asthma Depression anxiety per pt Endometriosis PCOS (polycystic ovarian syndrome) S/P x2 PAST SURGICAL HISTORY Procedure Laterality Date ANESTH, SECTION SECTION HX 08/31/2008, 09/2019 x2 CRYOCAUTERY OF CERVIX 07/2012 IUD REMOVAL 2009 was in lower uterine segment LAPAROSCOPY, APPENDECTOMY 06/2011 (per pt-endometriosis excision- no record of this on record review) and appy; Dr. Nava TONSILLECTOMY HX age 6 Social History Tobacco Use Smoking status: Never Smokeless tobacco: Never Vaping Use Vaping Use: Never used Substance Use Topics Alcohol use: Not Currently Drug use: No Allergies: ALLERGIES Allergen Reactions Latex Rash Latex skin tests were negative on October 28, 2018. Latex specific IgE level will be obtained to evaluate further for possible IgE-mediated latex hypersensitivity. Metformin GI Upset Penicillins Hives Allergy skin tests to penicillin were negative on 10/28/18. On 11/04/18, patient c/o generalized itching without visible skin rash 25 minutes after taking a test dose of amoxicillin. Sxs resolved without treatment. Although overall the patient is at low risk for a severe, immediate, IgE-mediated reaction to penicillin, recommend that she take the first dose of a course of a penicillin antibiotic in the allergy dept with a 1 hr in-office observation period afterwards as a precaution. Zithromax [Azithrom* Hives Vicodin [Hydrocodon* GI Upset Medications: APRI 0.15-0.03 mg per tablet take 1 tablet by mouth every day cetirizine (ZYRTEC) 10 mg tablet Take 1 tablet by mouth once daily. fluticasone (FLONASE ALLERGY RELIEF) 50 mcg/actuation nasal spray Use 1 Emerson in each nostril once daily. ferrous sulfate 325 mg (65 mg iron) tablet TAKE 1 TABLET BY MOUTH EVERY OTHER DAY albuterol HFA (PROVENTIL HFA, VENTOLIN HFA) 90 mcg/actuation inhaler TAKE 2 PUFFS BY MOUTH EVERY 4 HOURS NEEDED acetaminophen 325 mg-caffeine 40 mg-butalbital 50 mg (FIORICET) per tablet Take 1 tablet by mouth every 4 hours as needed for headache. sertraline (ZOLOFT) 100 mg tablet TAKE 1 TABLET BY MOUTH ONCE DAILY. sertraline (ZOLOFT) 50 mg tablet Take 1 tablet by mouth once daily. Combine with the 100 mg Zoloft dose. SUMAtriptan (IMITREX) 100 mg tablet Take 1 tablet by mouth as needed. (Patient not taking: Reported on 04/05/2023) REVIEW OF SYSTEMS GENERAL: No weight loss, malaise or fevers PHYSICAL EXAM BP 114/78 Pulse 80 Temp 36.1 ?C (97 ?F) Resp 16 Ht 154.9 cm (5' 1 ) Wt 96.1 kg (211 lb 13.8 oz) LMP 07/07/2021 SpO2 99% BMI 40.03 kg/m? General Appearanc (more content not included)... [facility] 05-15-2023 Note HNO ID: [id number] Author: ?, ?, ? Service: ? Author Type: ? Type: Progress Notes Filed: 05/15/2023 09:44 Note Text: Hepatitis B Vaccine(1 of 3 - 3-dose series) Never done Pneumococcal Vaccine(1 of 2 - PCV) Never done Spirometry Never done HPV Testing Never done Covid-19 Vaccine() due on 12/28/2022 [facility] 04-05-2023 Note HNO ID: [id number] Author: Karen Mccormack APRN.JESUS Service: ? Author Type: Nurse Practitioner Type: Progress Notes Filed: 04/05/2023 5:57 PM Note Text: This note was created using Everstringriter. Subjective Karen Fernandez is a 32 year old female. HPI by patient: Karen is a 32 year old presenting to the office with the complaint of asthma flare Started approximately 2 days ago Associated symptoms include cough, runny nose Denies any other concerns Covid Immunization Dates Overdue - Covid-19 Vaccine () Overdue since 12/28/2022 04/10/2022 Postponed until 04/10/2023 by Aleida Mauricio APRN.INFORMATION BROKER (Declined at this time) 10/22/2020 Imm Admin: COVID-19 original vaccine, age 12+ yr, monovalent (PFIZER-BIONTECH - PURPLE TOP) 09/29/2020 Imm Admin: COVID-19 original vaccine, age 12+ yr, monovalent (PFIZER-BIONTECH - PURPLE TOP) Sick contacts: no Smoking history/second hand smoke: no OTC benadryl No antibiotic use in the last 60 days. ALLERGIES Latex Rash Comment:Latex skin tests were negative on October 28, 2018. Latex specific IgE level will be obtained to evaluate further for possible IgE-mediated latex hypersensitivity. Metformin GI Upset Penicillins Hives Comment:Allergy skin tests to penicillin were negative on 10/28/18. On 11/04/18, patient c/o generalized itching without visible skin rash 25 minutes after taking a test dose of amoxicillin. Sxs resolved without treatment. Although overall the patient is at low risk for a severe, immediate, IgE-mediated reaction to penicillin, recommend that she take the first dose of a course of a penicillin antibiotic in the allergy dept with a 1 hr in-office observation period afterwards as a precaution. Zithromax [Azithrom* Hives Vicodin [Hydrocodon* GI Upset Family History Reviewed Including Cardiac Diseases, Psychiatric Diseases, AND Substance Abuse Problem: Thyroid Relation: Mother Age of Onset: (Not Specified) Comment: hypothyroid Problem: other (fibroid) Relation: Mother Age of Onset: (Not Specified) Comment: uterine Problem: other (thyroidectomy) Relation: Mother Age of Onset: (Not Specified) Problem: Diabetes Relation: Maternal Grandmother Age of Onset: (Not Specified) Comment: type 2 Problem: Diabetes Relation: Paternal Grandmother Age of Onset: (Not Specified) Comment: type 2 Problem: Breast Cancer Relation: Other Age of Onset: (Not Specified) Comment: 2 maternal great aunts w/ breast cancer Problem: Thyroid Relation: Sister Age of Onset: (Not Specified) Comment: hypothyroid Problem: Asthma Relation: Father Age of Onset: (Not Specified) Social History Tobacco Use Smoking status: Never Smokeless tobacco: Never Vaping Use Vaping Use: Never used Alcohol use: Not Currently Drug use: No Review of Systems Constitutional: Negative for chills and fever. HENT: Positive for congestion, postnasal drip and rhinorrhea. Negative for ear pain and sore throat. Respiratory: Positive for cough and shortness of breath. Negative for wheezing. Cardiovascular: Negative for chest pain. Allergic/Immunologic: Negative for immunocompromised state. Hematological: Negative for adenopathy. Objective BP 118/81 Pulse 60 Temp 37 ?C (98.6 ?F) Wt 95.3 kg (210 lb) LMP 07/07/2021 SpO2 95% BMI 39.68 kg/m? Physical Exam Vitals and nursing note reviewed. HENT: Right Ear: Tympanic membrane and ear canal normal. Left Ear: Tympanic membrane and ear canal normal. Nose: Congestion and rhinorrhea present. Mouth/Throat: Pharynx: Uvula midline. Posterior oropharyngeal erythema present. No oropharyngeal exudate. Cardiovascular: Rate and Rhythm: Normal rate and regular rhythm. Heart sounds: Normal heart sounds. Pulmonary: Effort: Pulmonary effort is normal. No respiratory distress. Breath sounds: Normal breath sounds. No stridor. No wheezing, rhonchi or rales. Chest: Chest wall: No tenderness. Lymphadenopathy: Cervical: No cervical adenopathy. Skin: General: Skin is warm and dry. Neurological: Mental Status: She is alert and oriented to person, place, and time. Assessment and Plan ASSESSMENT/PLAN: 1. Seasonal allergic rhinitis due to pollen - ICD9: 477.0, ICD10: J30.1 (primary diagnosis) - CETIRIZINE 10 MG TABLET - FLUTICASONE PROPIONATE 50 MCG/ACTUATION NASAL SPRAY,SUSPENSION 2. Mild intermittent asthma with exacerbation - ICD9: 493.92, ICD10: J45.21 - Cough variant asthma - Avoidance of triggers recommended - PREDNISONE 10 MG TABLET Karen Mccormack APRN.CNP Medical Decision Making: Problems: Moderate: New problem with uncertain prognosis Data: Unique source(s) for external note(s) reviewed: 1 Risk: Moderate: Drug management Medical Decision Making Level: 4 - Moderate [facility] 04-05-2023 Instructions Karen Mccormack APRN.JESUS - 04/05/2023 5:39 PM EST UPPER RESPIRATORY INFECTIONS Most cases are caused by viruses and most cases are mild, temporary, and harmless. Symptoms can last 2 to 3 weeks and can include: nasal congestion, sore throat, coughing, muscles aches, headaches, nausea, diarrhea, fatigue and fever. 1. Drink plenty of fluids. 2. Get lots of rest. 3. Avoid dehydrants such as caffeine and alcohol. 4. Nasal saline is an effective decongestant and be used frequently throughout the day. 5. To loosen phlegm and help coughing, drink plenty of fluids and using a humidifier. 6. For sore throats, it is ok to use cough drops, throat sprays, or gargling warm salt water. 7. Always cover your mouth when you cough or sneeze, and wash your hands frequently. Avoid crowded areas like shopping centers, movies while you are sick so you don't [employer] a different virus, or infect others. 8. Avoid exposure to cigarettes or fumes. 9. Avoid irritants such as potpourri, dust, perfumes, scented candles and scented sprays 10. Air conditioning is an effective allergen and irritant avoidance strategy in the spring, summer and fall. 11. Honey is an effective cough suppressant. Try one tsp two to three times per day. 12. Mucinex every 12 hours with a full 10-12 ounces of water The below information is from [email or web address].[email or web address]: Antibiotics Will rarely help an upper respiratory infections. Antibiotics lead to more resistant infections that are harder to treat. There is little to no benefit to taking antibiotics for most acute upper respiratory tract infections. documented in this encounter [facility] 04-05-2023 History of Presen t illness Narrative This note was created using Everstringriter. Subjective Karen Fernandez is a 32 year old female. HPI by patient: Karen is a 32 year old presenting to the office with the complaint of asthma flare Started approximately 2 days ago Associated symptoms include cough, runny nose Denies any other concerns Covid Immunization Dates Overdue - Covid-19 Vaccine ( season) Overdue since 12/28/2022 04/10/2022 Postponed until 04/10/2023 by Aleida Mauricio APRN.CNP (Declined at this time) 10/22/2020 Imm Admin: COVID-19 original vaccine, age 12+ yr, monovalent (Gratafy-BIONTBitbond - PURPLE TOP) 09/29/2020 Imm Admin: COVID-19 original vaccine, age 12+ yr, monovalent (Gratafy-BIONTECH - PURPLE TOP) Sick contacts: no Smoking history/second hand smoke: no OTC benadryl No antibiotic use in the last 60 days. ALLERGIES Latex Rash Comment:Latex skin tests were negative on October 28, 2018. Latex specific IgE level will be obtained to evaluate further for possible IgE-mediated latex hypersensitivity. Metformin GI Upset Penicillins Hives Comment:Allergy skin tests to penicillin were negative on 10/28/18. On 11/04/18, patient c/o generalized itching without visible skin rash 25 minutes after taking a test dose of amoxicillin. Sxs resolved without treatment. Although overall the patient is at low risk for a severe, immediate, IgE-mediated reaction to penicillin, recommend that she take the first dose of a course of a penicillin antibiotic in the allergy dept with a 1 hr in-office observation period afterwards as a precaution. Zithromax [Azithrom* Hives Vicodin [Hydrocodon* GI Upset Family History Reviewed Including Cardiac Diseases, Psychiatric Diseases, & Substance Abuse Problem: Thyroid Relation: Mother Age of Onset: (Not Specified) Comment: hypothyroid Problem: other (fibroid) Relation: Mother Age of Onset: (Not Specified) Comment: uterine Problem: other (thyroidectomy) Relation: Mother Age of Onset: (Not Specified) Problem: Diabetes Relation: Maternal Grandmother Age of Onset: (Not Specified) Comment: type 2 Problem: Diabetes Relation: Paternal Grandmother Age of Onset: (Not Specified) Comment: type 2 Problem: Breast Cancer Relation: Other Age of Onset: (Not Specified) Comment: 2 maternal great aunts w/ breast cancer Problem: Thyroid Relation: Sister Age of Onset: (Not Specified) Comment: hypothyroid Problem: Asthma Relation: Father Age of Onset: (Not Specified) Social History Tobacco Use Smoking status: Never Smokeless tobacco: Never Vaping Use Vaping Use: Never used Alcohol use: Not Currently Drug use: No Review of Systems Constitutional: Negative for chills and fever. HENT: Positive for congestion, postnasal drip and rhinorrhea. Negative for ear pain and sore throat. Respiratory: Positive for cough and shortness of breath. Negative for wheezing. Cardiovascular: Negative for chest pain. Allergic/Immunologic: Negative for immunocompromised state. Hematological: Negative for adenopathy. Objective BP 118/81 Pulse 60 Temp 37 C (98.6 F) Wt 95.3 kg (210 lb) LMP 07/07/2021 SpO2 95% BMI 39.68 kg/m Physical Exam Vitals and nursing note reviewed. HENT: Right Ear: Tympanic membrane and ear canal normal. Left Ear: Tympanic membrane and ear canal normal. Nose: Congestion and rhinorrhea present. Mouth/Throat: Pharynx: Uvula midline. Posterior oropharyngeal erythema present. No oropharyngeal exudate. Cardiovascular: Rate and Rhythm: Normal rate and regular rhythm. Heart sounds: Normal heart sounds. Pulmonary: Effort: Pulmonary effort is normal. No respiratory distress. Breath sounds: Normal breath sounds. No stridor. No wheezing, rhonchi or rales. Chest: Chest wall: No tenderness. Lymphadenopathy: Cervical: No cervical adenopathy. Skin: General: Skin is warm and dry. Neurological: Mental Status: She is alert and oriented to person, place, and time. Assessment and Plan ASSESSMENT/PLAN: 1. Seasonal allergic rhinitis due to pollen - ICD9: 477.0, ICD10: J30.1 (primary diagnosis) - CETIRIZINE 10 MG TABLET - FLUTICASONE PROPIONATE 50 MCG/ACTUATION NASAL SPRAY,SUSPENSION 2. Mild intermittent asthma with exacerbation - ICD9: 493.92, ICD10: J45.21 - Cough variant asthma - Avoidance of triggers recommended - PREDNISONE 10 MG TABLET Karen Mccormack APRN.CNP Medical Decision Making: Problems: Moderate: New problem with uncertain prognosis Data: Unique source(s) for external note(s) reviewed: 1 Risk: Moderate: Drug management Medical Decision Making Level: 4 - Moderate documented in this encounter [facility] 03-18-2023 Miscellaneous Notes Faxed orders [phone] Orders in outbox. Please help patient make an appt Rohit Brody MD Please review and advise documented in this encounter [facility] 01-15-2023 Miscellaneous Notes Pharmacy verified in Epic Patient has been identified by name and date of : Yes Patient aware RX will be sent to pharmacy. No need to notify patient. Patient phones for refill(s): Requested Prescriptions Pending Prescriptions Disp Refills ferrous sulfate 325 mg (65 mg iron) tablet [Pharmacy Med Name: FERROUS SULFATE 325 MG TABLET] 45 tablet 1 Sig: TAKE 1 TABLET BY MOUTH EVERY OTHER DAY Date of last office visit : 04/10/2022 Date of next office visit : 05/15/2023 Last 2 Encounter Wt Readings: Date: Wt: 10/23/2022 89.8 kg (198 lb) 09/18/2022 88 kg (194 lb) Not applicable Please advise. Lo Bella MA documented in this encounter [facility] 11-29-2022 Note HNO ID: [id number] Author: Rohit Brody MD Service: ? Author Type: Physician Type: Progress Notes Filed: 11/29/2022 8:41 AM Note Text: VIRTUAL VISIT PROGRESS NOTE This is a virtual visit using Plored video visit. It required patient-provider interaction for the medical decision making as documented below. I have communicated my name and active licensure. The patient's identity and physical location were verified at the time of this visit. Either the patient or their legal underwriting sales representative has been informed of the risks and benefits of -- and alternatives to -- treatment through a remote evaluation and consents to proceed with the evaluation remotely. Karen Fernandez is a 32 year old female seen for Headaches. Patient etcher hand was refilling Fioricet/headache meds while she was . Headaches are started coming back. Last child born about 2 years ago. Has had 3-4 migraines in the last 2 weeks. Possible stress trigger with kids going back to school. No possibility for . Never tried imitrex. No new neuro symptoms. HISTORY REVIEWED (electronic chart updated): PAST MEDICAL HISTORY Diagnosis Date Asthma Depression anxiety per pt Endometriosis PCOS (polycystic ovarian syndrome) S/P x2 PAST SURGICAL HISTORY Procedure Laterality Date ANESTH, SECTION SECTION HX 08/31/2008, 09/2019 x2 CRYOCAUTERY OF CERVIX 07/2012 IUD REMOVAL 2009 was in lower uterine segment LAPAROSCOPY, APPENDECTOMY 06/2011 (per pt-endometriosis excision- no record of this on record review) and appy; Dr. Nava TONSILLECTOMY HX age 6 FAMILY HISTORY Problem Relation Age of Onset Thyroid Mother hypothyroid other (fibroid) Mother uterine other (thyroidectomy) Mother Diabetes Maternal Grandmother type 2 Diabetes Paternal Grandmother type 2 Breast Cancer Other 2 maternal great aunts w/ breast cancer Thyroid Sister hypothyroid Asthma Father Social History Tobacco Use Smoking status: Never Smokeless tobacco: Never Vaping Use Vaping Use: Never used Substance Use Topics Alcohol use: Not Currently Drug use: No Current Outpatient Medications Medication Sig albuterol HFA (PROVENTIL HFA, VENTOLIN HFA) 90 mcg/actuation inhaler TAKE 2 PUFFS BY MOUTH EVERY 4 HOURS NEEDED acetaminophen 325 mg-caffeine 40 mg-butalbital 50 mg (FIORICET) per tablet Take 1 tablet by mouth every 4 hours as needed for headache. sertraline (ZOLOFT) 100 mg tablet TAKE 1 TABLET BY MOUTH ONCE DAILY. sertraline (ZOLOFT) 50 mg tablet Take 1 tablet by mouth once daily. Combine with the 100 mg Zoloft dose. APRI 0.15-0.03 mg per tablet TAKE 1 TABLET BY MOUTH EVERY DAY No current facility-administered medications for this visit. ALLERGIES Allergen Reactions Latex Rash Latex skin tests were negative on October 28, 2018. Latex specific IgE level will be obtained to evaluate further for possible IgE-mediated latex hypersensitivity. Metformin GI Upset Penicillins Hives Allergy skin tests to penicillin were negative on 10/28/18. On 11/04/18, patient c/o generalized itching without visible skin rash 25 minutes after taking a test dose of amoxicillin. Sxs resolved without treatment. Although overall the patient is at low risk for a severe, immediate, IgE-mediated reaction to penicillin, recommend that she take the first dose of a course of a penicillin antibiotic in the allergy dept with a 1 hr in-office observation period afterwards as a precaution. Zithromax [Azithrom* Hives Vicodin [Hydrocodon* GI Upset REVIEW OF SYSTEMS: GENERAL: feeling well without fatigue, no recent change in weight PHYSICAL EXAMINATION: VIDEO EXAM: (if completed, performed via video enabled technology) GENERAL: alert and appropriate, in no distress, well-hydrated, well nourished, and happy, smiling, interactive ASSESSMENT: (G43.809) Other migraine without status migrainosus, not intractable (primary encounter diagnosis) PLAN: Continue fioricet. Trial imitrex. Discussed if she has more than 9 headaches per month that she should let me know to start preventative. There are no Patient Instructions on file for this visit. Rohit Brody MD [facility] 11-29-2022 History of Presen t illness Narrative VIRTUAL VISIT PROGRESS NOTE This is a virtual visit using Plored video visit. It required patient-provider interaction for the medical decision making as documented below. I have communicated my name and active licensure. The patient's identity and physical location were verified at the time of this visit. Either the patient or their legal underwriting sales representative has been informed of the risks and benefits of -- and alternatives to -- treatment through a remote evaluation and consents to proceed with the evaluation remotely. Karen Fernandez is a 32 year old female seen for Headaches. Patient etcher hand was refilling Fioricet/headache meds while she was . Headaches are started coming back. Last child born about 2 years ago. Has had 3-4 migraines in the last 2 weeks. Possible stress trigger with kids going back to school. No possibility for . Never tried imitrex. No new neuro symptoms. HISTORY REVIEWED (electronic chart updated): PAST MEDICAL HISTORY Diagnosis Date Asthma Depression anxiety per pt Endometriosis PCOS (polycystic ovarian syndrome) S/P x2 PAST SURGICAL HISTORY Procedure Laterality Date ANESTH, SECTION SECTION HX 08/31/2008, 09/2019 x2 CRYOCAUTERY OF CERVIX 07/2012 IUD REMOVAL 2009 was in lower uterine segment LAPAROSCOPY, APPENDECTOMY 06/2011 (per pt-endometriosis excision- no record of this on record review) and appy; Dr. Nava TONSILLECTOMY HX age 6 FAMILY HISTORY Problem Relation Age of Onset Thyroid Mother hypothyroid other (fibroid) Mother uterine other (thyroidectomy) Mother Diabetes Maternal Grandmother type 2 Diabetes Paternal Grandmother type 2 Breast Cancer Other 2 maternal great aunts w/ breast cancer Thyroid Sister hypothyroid Asthma Father Social History Tobacco Use Smoking status: Never Smokeless tobacco: Never Vaping Use Vaping Use: Never used Substance Use Topics Alcohol use: Not Currently Drug use: No Current Outpatient Medications Medication Sig albuterol HFA (PROVENTIL HFA, VENTOLIN HFA) 90 mcg/actuation inhaler TAKE 2 PUFFS BY MOUTH EVERY 4 HOURS NEEDED acetaminophen 325 mg-caffeine 40 mg-butalbital 50 mg (FIORICET) per tablet Take 1 tablet by mouth every 4 hours as needed for headache. sertraline (ZOLOFT) 100 mg tablet TAKE 1 TABLET BY MOUTH ONCE DAILY. sertraline (ZOLOFT) 50 mg tablet Take 1 tablet by mouth once daily. Combine with the 100 mg Zoloft dose. APRI 0.15-0.03 mg per tablet TAKE 1 TABLET BY MOUTH EVERY DAY No current facility-administered medications for this visit. ALLERGIES Allergen Reactions Latex Rash Latex skin tests were negative on October 28, 2018. Latex specific IgE level will be obtained to evaluate further for possible IgE-mediated latex hypersensitivity. Metformin GI Upset Penicillins Hives Allergy skin tests to penicillin were negative on 10/28/18. On 11/04/18, patient c/o generalized itching without visible skin rash 25 minutes after taking a test dose of amoxicillin. Sxs resolved without treatment. Although overall the patient is at low risk for a severe, immediate, IgE-mediated reaction to penicillin, recommend that she take the first dose of a course of a penicillin antibiotic in the allergy dept with a 1 hr in-office observation period afterwards as a precaution. Zithromax [Azithrom* Hives Vicodin [Hydrocodon* GI Upset REVIEW OF SYSTEMS: GENERAL: feeling well without fatigue, no recent change in weight PHYSICAL EXAMINATION: VIDEO EXAM: (if completed, performed via video enabled technology) GENERAL: alert and appropriate, in no distress, well-hydrated, well nourished, and happy, smiling, interactive ASSESSMENT: (G43.809) Other migraine without status migrainosus, not intractable (primary encounter diagnosis) PLAN: Continue fioricet. Trial imitrex. Discussed if she has more than 9 headaches per month that she should let me know to start preventative. There are no Patient Instructions on file for this visit. Rohit Brody MD documented in this encounter [facility] 11-27-2022 Miscellaneous Notes Last appointment: 06/20/22 Next appointment: 11/29/22 Pharmacy verified in Epic. Refill(s) requested: Requested Prescriptions Pending Prescriptions Disp Refills albuterol HFA (PROVENTIL HFA, VENTOLIN HFA) 90 mcg/actuation inhaler [Pharmacy Med Name: ALBUTEROL HFA (VENTOLIN) INH] 18 Each 1 Sig: TAKE 2 PUFFS BY MOUTH EVERY 4 HOURS NEEDED Order(s) pended. Please advise. Barbara Reynoso LPN documented in this encounter [facility] 10-23-2022 Note HNO ID: [id number] Author: Karen Mccormack APRN.JESUS Service: ? Author Type: Nurse Practitioner Type: Progress Notes Filed: 10/23/2022 7:13 PM Note Text: This note was created using Rigelter. Subjective Karen Fernandez is a 32 year old female. HPI by patient: Karen is a 32 year old presenting to the office with the complaint of sore throat Started approximately yesterday Associated symptoms include sore throat and GREENE Denies any other concerns Covid Immunization Dates Postponed - COVID-19 VACCINE (3 - Booster for Pfizer series) Postponed until 04/10/2023 04/10/2022 Postponed until 04/10/2023 by Aleida Mauricio APRN.INFORMATION BROKER (Declined at this time) 10/22/2020 Imm Admin: COVID-19 original vaccine, age 12+ yr, monovalent (PFIZER-BIONTECH - PURPLE TOP) 09/29/2020 Imm Admin: COVID-19 original vaccine, age 12+ yr, monovalent (PFIZER-BIONTECH - PURPLE TOP) Sick contacts: yes mother had strep throat Smoking history/second hand smoke: no OTC IBU No antibiotic use in the last 60 days. ALLERGIES Latex Rash Comment:Latex skin tests were negative on October 28, 2018. Latex specific IgE level will be obtained to evaluate further for possible IgE-mediated latex hypersensitivity. Metformin GI Upset Penicillins Hives Comment:Allergy skin tests to penicillin were negative on 10/28/18. On 11/04/18, patient c/o generalized itching without visible skin rash 25 minutes after taking a test dose of amoxicillin. Sxs resolved without treatment. Although overall the patient is at low risk for a severe, immediate, IgE-mediated reaction to penicillin, recommend that she take the first dose of a course of a penicillin antibiotic in the allergy dept with a 1 hr in-office observation period afterwards as a precaution. Zithromax [Azithrom* Hives Vicodin [Hydrocodon* GI Upset Family History Reviewed Including Cardiac Diseases, Psychiatric Diseases, AND Substance Abuse Problem: Thyroid Relation: Mother Age of Onset: (Not Specified) Comment: hypothyroid Problem: other (fibroid) Relation: Mother Age of Onset: (Not Specified) Comment: uterine Problem: other (thyroidectomy) Relation: Mother Age of Onset: (Not Specified) Problem: Diabetes Relation: Maternal Grandmother Age of Onset: (Not Specified) Comment: type 2 Problem: Diabetes Relation: Paternal Grandmother Age of Onset: (Not Specified) Comment: type 2 Problem: Breast Cancer Relation: Other Age of Onset: (Not Specified) Comment: 2 maternal great aunts w/ breast cancer Problem: Thyroid Relation: Sister Age of Onset: (Not Specified) Comment: hypothyroid Problem: Asthma Relation: Father Age of Onset: (Not Specified) Social History Tobacco Use Smoking status: Never Smokeless tobacco: Never Vaping Use Vaping Use: Never used Alcohol use: Not Currently Drug use: No Review of Systems Constitutional: Negative for chills and fever. HENT: Positive for sore throat. Negative for congestion, ear pain and rhinorrhea. Respiratory: Negative for cough. Cardiovascular: Negative for chest pain. Allergic/Immunologic: Negative for immunocompromised state. Neurological: Positive for headaches. Hematological: Negative for adenopathy. Objective BP 109/73 Pulse 80 Ht 154.9 cm (5' 1 ) Wt 89.8 kg (198 lb) LMP 07/07/2021 BMI 37.41 kg/m? Physical Exam Vitals and nursing note reviewed. HENT: Right Ear: Tympanic membrane and ear canal normal. Left Ear: Tympanic membrane and ear canal normal. Nose: No congestion or rhinorrhea. Mouth/Throat: Pharynx: Uvula midline. No oropharyngeal exudate or posterior oropharyngeal erythema. Tonsils: 0 on the right. 0 on the left. Cardiovascular: Rate and Rhythm: Normal rate and regular rhythm. Heart sounds: Normal heart sounds. Pulmonary: Effort: Pulmonary effort is normal. No respiratory distress. Breath sounds: Normal breath sounds. No stridor. No wheezing, rhonchi or rales. Chest: Chest wall: No tenderness. Lymphadenopathy: Cervical: No cervical adenopathy. Skin: General: Skin is warm and dry. Neurological: Mental Status: She is alert and oriented to person, place, and time. Assessment and Plan ASSESSMENT/PLAN: 1. Pharyngitis, unspecified etiology - ICD9: 462, ICD10: J02.9 - suspect viral - Rapid Strep negative in the office today - Discussed supportive care treatment with fluids, rest and analgesia. Karen Mccormack APRN.CNP Medical Decision Making: Problems: Moderate: New problem with uncertain prognosis Data: Unique test(s) ordered: 1 Risk: Low: Low risk from testing/treatment Medical Decision Making Level: 3 - Low [facility] 10-23-2022 Instructions Karen Mccormack APRN.CNP - 10/23/2022 7:03 PM EDT [facility] PATIENT INFO PHARYNGITIS OVERVIEW A sore throat (pharyngitis) is a common problem, and usually is caused by a viral or bacterial infection. Sore throat usually resolves on its own without complications in adults, although it is important to know when to seek medical attention. Viruses can cause a sore throat and other upper respiratory infections, such as the common cold. Sore throat caused by a virus is not treated with antibiotics, but instead may be treated with rest, pain medication, and other therapies aimed at relieving symptoms. Strep throat is a particular kind of pharyngitis that is caused by a bacterium known as group A streptococcus (GAS). Strep throat is treated with a course of antibiotics. SORE THROAT SYMPTOMS Viral pharyngitis - Most people with a sore throat have a virus. The most common viruses are those that cause upper respiratory infections, such as the common cold. Symptoms of a viral infection can include: A runny or congested nose Irritation or redness of the eyes Cough, hoarseness, or soreness in the roof of the mouth Some viruses cause a fever and can make you feel quite ill. Strep throat - Approximately 10 percent of adults with a sore throat have strep throat. Signs and symptoms of strep throat include the following: Pain in the throat Fever (temperature greater than 100.4 F or 38 C) Enlarged lymph glands in the neck No cough, runny nose, or irritation/redness of the eyes When to seek urgent help - See your doctor or nurse immediately if you have a sore throat along with any of the following: Difficulty breathing Skin rash Drooling because you cannot swallow Swelling of the neck or tongue Stiff neck or difficulty opening the mouth SORE THROAT DIAGNOSIS Most people with a sore throat get better without treatment. There is no specific treatment for a sore throat caused by usual cold viruses. Is it strep or not? - A combination of symptoms (fever, enlarged glands in the neck, white patches on your tonsils, and no cough) can help in determining if you have strep. If you have two or more symptoms, a rapid test or throat culture may be done. People with fewer than two symptoms usually do not need testing or treatment for strep throat. Rapid test - The rapid test determines if there are streptococcus bacteria on a throat swab. The test can be done in a clinician's office and the results are available within a few minutes. The test is accurate in most cases, although a small percentage of tests are falsely negative (the bacteria are present but the test is negative). Strep Confirmatory Test - involves swabbing the throat, sending the swab to a laboratory, and waiting 24 to 48 hours for the results. These Strep PCR tests are slightly more accurate than the rapid test. TREATMENT OF SORE THROAT Sore throat treatment - Antibiotics do not help throat pain caused by a virus and are not recommended. Sore throat caused by viral infections usually lasts four to five days. During this time, treatments to reduce pain may be helpful. Several therapies can help to relieve throat pain. Pain medication - You can treat your throat pain with a mild pain reliever such as acetaminophen (Tylenol ) or a non -steroidal anti-inflammatory agent such as ibuprofen or naproxen (Motrin or Aleve ). Oral rinses - Salt water gargles are an effective treatment for throat pain. It is not clear that salt water works to relieve pain, but it is unlikely to be harmful. Most recipes suggest 1/4 to 1/2 teaspoon of salt per one cup (8 ounces) of warm water. Sprays - Sprays containing topical anesthetics ( benzocaine, phenol) are available to treat sore throat. However, such sprays are no more effective than sucking on hard candy. Lozenges - A variety of lozenges (cough drops) are available to treat throat pain or relieve dryness. However, it is not clear that lozenges work any better than other forms of hard candy, which are generally less expensive. Other treatments - Other treatments that may help with throat pain include increase fluid intake and rest, sipping warm beverages (eg, honey or lemon tea, chicken soup), cold beverages, or eating cold or frozen desserts (eg, ice cream, popsicles).Replace your toothbrush, it may be harboring germs. Until the illness is resolved, do not share anything by mouth. Strep throat - Penicillin, or an antibiotic related to penicillin, is the treatment of choice for strep throat. A one time injection of penicillin is also available. People who are allergic to penicillin are given an alternate antibiotic. It is important to finish the entire course of treatment to completely eliminate the infection. If symptoms do not begin to improve or worsen by three days of antibiotic treatment, you should see your primary care provider. Return to work/school - If you have been diagnosed with strep throat, stay home from work or school until you have completed 24 hours of antibiotics. Within 24 hours of beginning antibiotic treatment, you will feel better and will be less contagious. If you have a sore throat (not diagnosed as strep), you may participate in your usual activities as soon as you feel well. What to do if symptoms don't improve:- If symptoms do not begin to improve within 5 to 7 days you should see your primary care provider. documented in this encounter [facility] 10-23-2022 History of Presen t illness Narrative This note was created using Everstringriter. Subjective Karen Fernandez is a 32 year old female. HPI by patient: Karen is a 32 year old presenting to the office with the complaint of sore throat Started approximately yesterday Associated symptoms include sore throat and GREENE Denies any other concerns Covid Immunization Dates Postponed - COVID-19 VACCINE (3 - Booster for Pfizer series) Postponed until 04/10/2023 04/10/2022 Postponed until 04/10/2023 by Aleida Mauricio APRN.INFORMATION BROKER (Declined at this time) 10/22/2020 Imm Admin: COVID-19 original vaccine, age 12+ yr, monovalent (PFIZER-BIONTECH - PURPLE TOP) 09/29/2020 Imm Admin: COVID-19 original vaccine, age 12+ yr, monovalent (PFIZER-BIONTECH - PURPLE TOP) Sick contacts: yes mother had strep throat Smoking history/second hand smoke: no OTC IBU No antibiotic use in the last 60 days. ALLERGIES Latex Rash Comment:Latex skin tests were negative on October 28, 2018. Latex specific IgE level will be obtained to evaluate further for possible IgE-mediated latex hypersensitivity. Metformin GI Upset Penicillins Hives Comment:Allergy skin tests to penicillin were negative on 10/28/18. On 11/04/18, patient c/o generalized itching without visible skin rash 25 minutes after taking a test dose of amoxicillin. Sxs resolved without treatment. Although overall the patient is at low risk for a severe, immediate, IgE-mediated reaction to penicillin, recommend that she take the first dose of a course of a penicillin antibiotic in the allergy dept with a 1 hr in-office observation period afterwards as a precaution. Zithromax [Azithrom* Hives Vicodin [Hydrocodon* GI Upset Family History Reviewed Including Cardiac Diseases, Psychiatric Diseases, & Substance Abuse Problem: Thyroid Relation: Mother Age of Onset: (Not Specified) Comment: hypothyroid Problem: other (fibroid) Relation: Mother Age of Onset: (Not Specified) Comment: uterine Problem: other (thyroidectomy) Relation: Mother Age of Onset: (Not Specified) Problem: Diabetes Relation: Maternal Grandmother Age of Onset: (Not Specified) Comment: type 2 Problem: Diabetes Relation: Paternal Grandmother Age of Onset: (Not Specified) Comment: type 2 Problem: Breast Cancer Relation: Other Age of Onset: (Not Specified) Comment: 2 maternal great aunts w/ breast cancer Problem: Thyroid Relation: Sister Age of Onset: (Not Specified) Comment: hypothyroid Problem: Asthma Relation: Father Age of Onset: (Not Specified) Social History Tobacco Use Smoking status: Never Smokeless tobacco: Never Vaping Use Vaping Use: Never used Alcohol use: Not Currently Drug use: No Review of Systems Constitutional: Negative for chills and fever. HENT: Positive for sore throat. Negative for congestion, ear pain and rhinorrhea. Respiratory: Negative for cough. Cardiovascular: Negative for chest pain. Allergic/Immunologic: Negative for immunocompromised state. Neurological: Positive for headaches. Hematological: Negative for adenopathy. Objective BP 109/73 Pulse 80 Ht 154.9 cm (5' 1 ) Wt 89.8 kg (198 lb) LMP 07/07/2021 BMI 37.41 kg/m Physical Exam Vitals and nursing note reviewed. HENT: Right Ear: Tympanic membrane and ear canal normal. Left Ear: Tympanic membrane and ear canal normal. Nose: No congestion or rhinorrhea. Mouth/Throat: Pharynx: Uvula midline. No oropharyngeal exudate or posterior oropharyngeal erythema. Tonsils: 0 on the right. 0 on the left. Cardiovascular: Rate and Rhythm: Normal rate and regular rhythm. Heart sounds: Normal heart sounds. Pulmonary: Effort: Pulmonary effort is normal. No respiratory distress. Breath sounds: Normal breath sounds. No stridor. No wheezing, rhonchi or rales. Chest: Chest wall: No tenderness. Lymphadenopathy: Cervical: No cervical adenopathy. Skin: General: Skin is warm and dry. Neurological: Mental Status: She is alert and oriented to person, place, and time. Assessment and Plan ASSESSMENT/PLAN: 1. Pharyngitis, unspecified etiology - ICD9: 462, ICD10: J02.9 - suspect viral - Rapid Strep negative in the office today - Discussed supportive care treatment with fluids, rest and analgesia. Karen Mccormack APRN.CNP Medical Decision Making: Problems: Moderate: New problem with uncertain prognosis Data: Unique test(s) ordered: 1 Risk: Low: Low risk from testing/treatment Medical Decision Making Level: 3 - Low documented in this encounter [facility] 10-22-2022 Miscellaneous Notes Pharmacy verified in Epic Patient has been identified by name and date of : Yes Patient aware RX will be sent to pharmacy. No need to notify patient. Patient phones for refill(s): Requested Prescriptions Pending Prescriptions Disp Refills VENTOLIN HFA 90 mcg/actuation inhaler [Pharmacy Med Name: VENTOLIN HFA 90 MCG INHALER] 18 Each Sig: INHALE 2 PUFFS INSTRUCTED EVERY 4 HOURS NEEDED Date of last office visit : 04/10/2022 Date of next office visit : 04/16/2023 Last 2 Encounter Wt Readings: Date: Wt: 09/18/2022 88 kg (194 lb) 05/07/2022 86.2 kg (190 lb) Not applicable Please advise. Lo Bella MA documented in this encounter [facility] 09-28-2022 Miscellaneous Notes Last appointment: 06/20/22 Next appointment: N/A Pharmacy verified in [facility]. Refill(s) requested: Requested Prescriptions Pending Prescriptions Disp Refills albuterol HFA (PROVENTIL HFA, VENTOLIN HFA) 90 mcg/actuation inhaler 18 g 0 Sig: Inhale 2 Puffs as instructed every 4 hours as needed. Order(s) pended. Please advise. Stacey Hurlye MA, [facility] documented in this encounter [facility] 09-18-2022 Note HNO ID: [id number] Author: Alexia Plascencia PA-C Service: ? Author Type: Physician Mold Bunch Trimmer Type: Progress Notes Filed: 09/18/2022 4:39 PM Note Text: 09/18/2022 Patient presents with: Sore Throat: Sxs started last night, her children have tested +, sore throat swollen glands. SUBJECTIVE: This is a 32 year old that is here today for acute onset sore throat and swollen glands x 1 day. She has children at home with strep throat. No cough, n/v, GREENE, or rash. No other sick symptoms. No other URI symptoms. Denies fever, chills, sweats, or fatigue. Patient denies wheezing, shortness of breath, increased WOB, or chest pain. Asthma: none Pneumonia: none Tobacco: none Pain on scale of 0-10 with 0 being no pain and 10 being greatest pain: 6 Nothing makes the symptoms better. Nothing makes them worse. Self-treatment:. none The severity is mild and the symptoms are not improving. The patient did not have a similar problem in the last 3 months. The patient did not take any antibiotics in the last 3 months. The patient was not exposed to strep. Barriers to learning: none. Reviewed meds, OTCs, herbals or supplements. Reviewed allergies, medications, social history, and past medical history. PAST MEDICAL HISTORY Diagnosis Date Asthma Depression anxiety per pt Endometriosis PCOS (polycystic ovarian syndrome) S/P x2 ALLERGIES Latex, Metformin, Penicillins, Zithromax [Azithromycin], and Vicodin [Hydrocodone-Acetaminophen] MEDICATIONS Current Outpatient Medications Medication Sig sertraline (ZOLOFT) 100 mg tablet TAKE 1 TABLET BY MOUTH ONCE DAILY. sertraline (ZOLOFT) 50 mg tablet Take 1 tablet by mouth once daily. Combine with the 100 mg Zoloft dose. APRI 0.15-0.03 mg per tablet TAKE 1 TABLET BY MOUTH EVERY DAY albuterol HFA (PROVENTIL HFA, VENTOLIN HFA) 90 mcg/actuation inhaler Inhale 2 Puffs as instructed every 4 hours as needed. ofloxacin (OCUFLOX) 0.3 % ophthalmic solution Instill 2 drops in affected eye every 4 hours for the first 2 days, then instill 2 drops 4 times daily for an additional 5 days. No current facility-administered medications for this visit. Medications and allergies reviewed by this provider. SOCIAL HISTORY Social History Tobacco Use Smoking status: Never Smokeless tobacco: Never Vaping Use Vaping Use: Never used Substance Use Topics Alcohol use: Not Currently Drug use: No REVIEW OF SYSTEMS Review of Systems ROS: constitutional-neg, HENT-sore throat, Eyes- neg, Allergy- neg, heart-neg, respiratory-neg, GI-neg, skin-neg, lymph-neg, - All systems neg except as noted above in HPI. OBJECTIVE: BP 107/73 Pulse 114 Temp 37 ?C (98.6 ?F) Wt 88 kg (194 lb) LMP 07/07/2021 SpO2 99% BMI 36.66 kg/m? . Vital signs reviewed by this provider. Physical Exam Vitals reviewed. Constitutional: General: She is not in acute distress. Appearance: Normal appearance. She is well-developed and normal weight. She is not ill-appearing, toxic-appearing or diaphoretic. HENT: Head: Normocephalic and atraumatic. No right periorbital erythema or left periorbital erythema. Salivary Glands: Right salivary gland is not diffusely enlarged or tender. Left salivary gland is not diffusely enlarged or tender. Right Ear: Tympanic membrane, ear canal and external ear normal. Left Ear: Tympanic membrane, ear canal and external ear normal. Nose: Nose normal. No congestion or rhinorrhea. Right Sinus: No maxillary sinus tenderness or frontal sinus tenderness. Left Sinus: No maxillary sinus tenderness or frontal sinus tenderness. Mouth/Throat: Lips: No lesions. Mouth: Mucous membranes are moist. No oral lesions. Dentition: No gum lesions. Tongue: No lesions. Tongue does not deviate from midline. Palate: No mass and lesions. Pharynx: Oropharynx is clear. Posterior oropharyngeal erythema present. No pharyngeal swelling, oropharyngeal exudate or uvula swelling. Tonsils: No tonsillar exudate or tonsillar abscesses. 0 on the right. 0 on the left. Comments: Tonsils absent Eyes: General: Lids are normal. No scleral icterus. Right eye: No discharge. Left eye: No discharge. Extraocular Movements: Extraocular movements intact. Conjunctiva/sclera: Conjunctivae normal. Pupils: Pupils are equal, round, and reactive to light. Cardiovascular: Rate and Rhythm: Normal rate and regular rhythm. Heart sounds: Normal heart sounds. Pulmonary: Effort: Pulmonary effort is normal. Breath sounds: Normal breath sounds and air entry. Musculoskeletal: Cervical back: Full passive range of motion without pain. No spinous process tenderness or muscular tenderness. Lymphadenopathy: Head: Right side of head: No submental, submandibular, tonsillar, preauricular or posterior auricular adenopathy. Left side of head: No submental, submandibular, tonsillar, preauricular or posterior auricular adenopathy. Cervical: Cervical a (more content not included)... [facility] 07-09-2022 Miscellaneous Notes See previous message, patient notified documented in this encounter [facility] 06-20-2022 Note HNO ID: [id number] Author: Rohit Brody MD Service: ? Author Type: Physician Type: Progress Notes Filed: 06/22/2022 5:54 AM Note Text: ESTABLISHED PATIENT Karen Fernandez is a 32 year old female presenting for Telemedicine. HISTORY OF PRESENT ILLNESS Eye crusted shot. Burning. Sensitive. Painful. No blurred vision unless lot of drainage. No fevers ASSESSMENT: (H10.33) Acute bacterial conjunctivitis of both eyes (primary encounter diagnosis) PLAN: Eye drops HISTORIES FAMILY HISTORY Problem Relation Age of Onset Thyroid Mother hypothyroid other (fibroid) Mother uterine other (thyroidectomy) Mother Diabetes Maternal Grandmother type 2 Diabetes Paternal Grandmother type 2 Breast Cancer Other 2 maternal great aunts w/ breast cancer Thyroid Sister hypothyroid Asthma Father PAST MEDICAL HISTORY Diagnosis Date Asthma Depression anxiety per pt Endometriosis PCOS (polycystic ovarian syndrome) S/P x2 PAST SURGICAL HISTORY Procedure Laterality Date ANESTH, SECTION SECTION HX 08/31/2008, 09/2019 x2 CRYOCAUTERY OF CERVIX 07/2012 IUD REMOVAL 2009 was in lower uterine segment LAPAROSCOPY, APPENDECTOMY 06/2011 (per pt-endometriosis excision- no record of this on record review) and appy; Dr. Nava TONSILLECTOMY HX age 6 Social History Tobacco Use Smoking status: Never Smokeless tobacco: Never Vaping Use Vaping Use: Never used Substance Use Topics Alcohol use: Not Currently Drug use: No Allergies: ALLERGIES Allergen Reactions Latex Rash Latex skin tests were negative on October 28, 2018. Latex specific IgE level will be obtained to evaluate further for possible IgE-mediated latex hypersensitivity. Metformin GI Upset Penicillins Hives Allergy skin tests to penicillin were negative on 10/28/18. On 11/04/18, patient c/o generalized itching without visible skin rash 25 minutes after taking a test dose of amoxicillin. Sxs resolved without treatment. Although overall the patient is at low risk for a severe, immediate, IgE-mediated reaction to penicillin, recommend that she take the first dose of a course of a penicillin antibiotic in the allergy dept with a 1 hr in-office observation period afterwards as a precaution. Zithromax [Azithrom* Hives Vicodin [Hydrocodon* GI Upset Medications: APRI 0.15-0.03 mg per tablet TAKE 1 TABLET BY MOUTH EVERY DAY albuterol HFA (PROVENTIL HFA, VENTOLIN HFA) 90 mcg/actuation inhaler Inhale 2 Puffs as instructed every 4 hours as needed. sertraline (ZOLOFT) 50 mg tablet TAKE 1 TABLET BY MOUTH ONCE DAILY. COMBINE WITH THE 100 MG ZOLOFT DOSE. sertraline (ZOLOFT) 100 mg tablet TAKE 1 TABLET BY MOUTH ONCE DAILY. REVIEW OF SYSTEMS GENERAL: No weight loss, malaise or fevers PHYSICAL EXAM [facility] 07/07/2021 General Appearance: Well appearing, alert, in no acute distress, well-hydrated, well nourished.. Eyes: redness to eyes. Rohit Brody MD [facility] 06-20-2022 History of Presen t illness Narrative ESTABLISHED PATIENT Karen Fernandez is a 32 year old female presenting for Telemedicine. HISTORY OF PRESENT ILLNESS Eye crusted shot. Burning. Sensitive. Painful. No blurred vision unless lot of drainage. No fevers ASSESSMENT: (H10.33) Acute bacterial conjunctivitis of both eyes (primary encounter diagnosis) PLAN: Eye drops HISTORIES FAMILY HISTORY Problem Relation Age of Onset Thyroid Mother hypothyroid other (fibroid) Mother uterine other (thyroidectomy) Mother Diabetes Maternal Grandmother type 2 Diabetes Paternal Grandmother type 2 Breast Cancer Other 2 maternal great aunts w/ breast cancer Thyroid Sister hypothyroid Asthma Father PAST MEDICAL HISTORY Diagnosis Date Asthma Depression anxiety per pt Endometriosis PCOS (polycystic ovarian syndrome) S/P x2 PAST SURGICAL HISTORY Procedure Laterality Date ANESTH, SECTION SECTION HX 08/31/2008, 09/2019 x2 CRYOCAUTERY OF CERVIX 07/2012 IUD REMOVAL 2009 was in lower uterine segment LAPAROSCOPY, APPENDECTOMY 06/2011 (per pt-endometriosis excision- no record of this on record review) and appy; Dr. Nava TONSILLECTOMY HX age 6 Social History Tobacco Use Smoking status: Never Smokeless tobacco: Never Vaping Use Vaping Use: Never used Substance Use Topics Alcohol use: Not Currently Drug use: No Allergies: ALLERGIES Allergen Reactions Latex Rash Latex skin tests were negative on October 28, 2018. Latex specific IgE level will be obtained to evaluate further for possible IgE-mediated latex hypersensitivity. Metformin GI Upset Penicillins Hives Allergy skin tests to penicillin were negative on 10/28/18. On 11/04/18, patient c/o generalized itching without visible skin rash 25 minutes after taking a test dose of amoxicillin. Sxs resolved without treatment. Although overall the patient is at low risk for a severe, immediate, IgE-mediated reaction to penicillin, recommend that she take the first dose of a course of a penicillin antibiotic in the allergy dept with a 1 hr in-office observation period afterwards as a precaution. Zithromax [Azithrom* Hives Vicodin [Hydrocodon* GI Upset Medications: APRI 0.15-0.03 mg per tablet TAKE 1 TABLET BY MOUTH EVERY DAY albuterol HFA (PROVENTIL HFA, VENTOLIN HFA) 90 mcg/actuation inhaler Inhale 2 Puffs as instructed every 4 hours as needed. sertraline (ZOLOFT) 50 mg tablet TAKE 1 TABLET BY MOUTH ONCE DAILY. COMBINE WITH THE 100 MG ZOLOFT DOSE. sertraline (ZOLOFT) 100 mg tablet TAKE 1 TABLET BY MOUTH ONCE DAILY. REVIEW OF SYSTEMS GENERAL: No weight loss, malaise or fevers PHYSICAL EXAM LMP 07/07/2021 General Appearance: Well appearing, alert, in no acute distress, well-hydrated, well nourished.. Eyes: redness to eyes. Rohit Brody MD documented in this encounter [facility] 05-14-2022 History of Presen t illness Narrative HPI Karen Fernandez is a 31 year old female who presents with follow-up hospital for tonsillar swelling. Patient was admitted to the hospital for lingual tonsillitis with upper airway obstruction. Patient is feeling much better presently. ROS General Weight loss: No Fatigue: No Night sweats:No Cardiac Chest pain:No Fast heart rate:No Swelling in the feet:No Respiratory Short of breath:No Cough:No Wheezing:No Gastrointestinal Nausea:No Vomiting:No Indigestion:No Past medical history, family history, and social history reviewed. PE LMP 07/07/2021 General: Patient is awake, alert, NAD. Voice is normal. Skin: normal Eyes: Extraocular motion and Gaze is normal. Ears: Right external auditory canal is normal. TMJ: normal. Right tympanic membranes normal. Left external auditory canal is normal. Left tympanic membrane normal. Nose: Septum is normal. Turbinates are normal. Nasopharynx:normal Oral Cavity/Oropharynx: Lips normal Dentition normal Tongue normal. Tonsils normal. Status post tonsillectomy lingual tonsils are moderately swollen Palate and uvula normal. Pharynx posterior normal Hypopharynx: Base of tongue normal Pyriform sinus normal. Larynx: Vocal cords normal. Epiglottis normal. Post cricoid normal. Salivary glands: Parotid normal. Submandibular and sublingual normal. Thyroid: normal. Lymphatic/Neck: Lymph nodes normal. Neurologic: Facial nerve normal. CT reviewed ASSESSMENT/PLAN: 1. Lingual tonsillitis - ICD9: 463, ICD10: J03.90 Follow-up as needed Gene Johnson MD Findings will be communicated to the referring physician via mail or electronic medical record. documented in this encounter [facility] 05-10-2022 History of Presen t illness Narrative TRANSITIONAL CARE MANAGEMENT (TCM) COMMUNITY MONITORING PROGRAM Provider Action/FYI: Transitions of Care Critical Issues: SPECIALIST FOLLOW-UP: ENT Unable to reach Pt. on 2nd attempt Left VM SUMMARY: Pt discharged from [place] on 05/08. Admitted for: Acute tonsillitis Contact made with patient: No - 2nd unsuccessful attempt - end outreach and close encounter Outreach ended TRANSITIONAL CARE MANAGEMENT (TCM) COMMUNITY MONITORING PROGRAM Provider Action/FYI: Transitions of Care Critical Issues: SPECIALIST FOLLOW-UP: ENT Unable to reach pt. on 1st attempt SUMMARY: Pt discharged from [place] on 05/08. Admitted for: Acute tonsillitis Contact made with patient: No - next outreach attempt will be on next day Outreach ended TCM Home Visit Referral Source of Stratification: [facility] Hospital Admission Status: Discharged Readmission Risk Score: 10 NEELIMA Score: 2 Patient meets program referral criteria: No Patient does not qualify for High Risk TCM Home Visit program due to: Discharged home, does not meet program criteria Michelle Puri RN May 09, 2022 11:23 AM documented in this encounter [facility] 05-01-2022 Miscellaneous Notes Last appointment:04/10/22 Next appointment: n/a Pharmacy verified in Epic. Refill(s) requested: Requested Prescriptions Pending Prescriptions Disp Refills APRI 0.15-0.03 mg per tablet [Pharmacy Med Name: APRI 28 DAY TABLET] 28 tablet 11 Sig: TAKE 1 TABLET BY MOUTH EVERY DAY Order(s) pended. Please advise. Barbara Reynoso LPN documented in this encounter [facility] 04-10-2022 History of Presen t illness Narrative ESTABLISHED PATIENT Karen Fernandez is a 31 year old female presenting for Physical. HISTORY OF PRESENT ILLNESS Vaccinations: Declines Preventative Health: UTD Safety Concerns: None Depression: None Eye Doctor/Exam: last done 2 years ago Dentist: every 6 months Exercise: none, has 2 small children Diet: none Specialist: [employer] Depression follow up: Mood: Stable Suicidal Thoughts: No Missed Doses: No Asthma follow up Fall is her worst time for this, a little rough in the spring Currently doing well Patient c/o irregular menses, has PCOS, gets menses about once every 8-12 weeks. She is requesting to go back on OCP to regulate menses, took this a couple of years ago. She denies personal hx of blood clots, breast cancer, uterine cancer, or endometrial cancer. Last 10 Encounter Wt Readings: Date: Wt: 04/10/2022 87.8 kg (193 lb 9.6 oz) 01/14/2022 83 kg (183 lb) 10/13/2021 86.2 kg (190 lb) 07/15/2021 83.9 kg (185 lb) 05/04/2021 85 kg (187 lb 8 oz) 03/05/2021 97.5 kg (215 lb) 03/01/2021 97.5 kg (215 lb) 02/23/2021 98.9 kg (218 lb) 02/13/2021 96.7 kg (213 lb 1.9 oz) 01/19/2021 92.3 kg (203 lb 8 oz) HISTORIES FAMILY HISTORY Problem Relation Age of Onset Thyroid Mother hypothyroid other (fibroid) Mother uterine other (thyroidectomy) Mother Diabetes Maternal Grandmother type 2 Diabetes Paternal Grandmother type 2 Breast Cancer Other 2 maternal great aunts w/ breast cancer Thyroid Sister hypothyroid Asthma Father PAST MEDICAL HISTORY Diagnosis Date Asthma Depression anxiety per pt Endometriosis PCOS (polycystic ovarian syndrome) S/P x2 PAST SURGICAL HISTORY Procedure Laterality Date ANESTH, SECTION SECTION HX 08/31/2008, 09/2019 x2 CRYOCAUTERY OF CERVIX 07/2012 IUD REMOVAL 2009 was in lower uterine segment LAPAROSCOPY, APPENDECTOMY 06/2011 (per pt-endometriosis excision- no record of this on record review) and appy; Dr. Nava TONSILLECTOMY HX age 6 Social History Tobacco Use Smoking status: Never Smokeless tobacco: Never Vaping Use Vaping Use: Never used Substance Use Topics Alcohol use: Not Currently Drug use: No Allergies: ALLERGIES Allergen Reactions Latex Rash Latex skin tests were negative on October 28, 2018. Latex specific IgE level will be obtained to evaluate further for possible IgE-mediated latex hypersensitivity. Metformin GI Upset Penicillins Hives Allergy skin tests to penicillin were negative on 10/28/18. On 11/04/18, patient c/o generalized itching without visible skin rash 25 minutes after taking a test dose of amoxicillin. Sxs resolved without treatment. Although overall the patient is at low risk for a severe, immediate, IgE-mediated reaction to penicillin, recommend that she take the first dose of a course of a penicillin antibiotic in the allergy dept with a 1 hr in-office observation period afterwards as a precaution. Zithromax [Azithrom* Hives Vicodin [Hydrocodon* GI Upset Medications: albuterol HFA (PROVENTIL HFA, VENTOLIN HFA) 90 mcg/actuation inhaler Inhale 2 Puffs as instructed every 4 hours as needed. sertraline (ZOLOFT) 50 mg tablet TAKE 1 TABLET BY MOUTH ONCE DAILY. COMBINE WITH THE 100 MG ZOLOFT DOSE. sertraline (ZOLOFT) 100 mg tablet TAKE 1 TABLET BY MOUTH ONCE DAILY. ibuprofen (MOTRIN) 600 mg tablet Take 1 tablet by mouth every 6 hours as needed for pain. (Patient not taking: Reported on 04/10/2022) acetaminophen 325 mg-caffeine 40 mg-butalbital 50 mg (FIORICET) per tablet Take 1 tablet by mouth every 4 hours as needed for headache. (Patient not taking: Reported on 04/10/2022) ferrous sulfate 325 mg (65 mg iron) tablet Take 1 tablet by mouth daily with dinner. (Patient not taking: Reported on 04/10/2022) PNV no.95/ferrous fum/folic ac ( ORAL) Take 1 tablet by mouth once daily. (Patient not taking: Reported on 04/10/2022) REVIEW OF SYSTEMS GENERAL: No weight loss, malaise or fevers. RESPIRATORY: Negative for cough, hemoptysis, wheezing or shortness of breath. CARDIOVASCULAR: Negative for chest pain, leg swelling or palpitations. All other systems reviewed and negative other than HPI. PHYSICAL EXAM BP 99/66 Pulse 76 Temp 36.7 C (98.1 F) Resp 18 Ht 154.9 cm (5' 0.98 ) Wt 87.8 kg (193 lb 9.6 oz) LMP 07/07/2021 SpO2 98% BMI 36.60 kg/m General: Well developed, well nourished, in no acute distress. Head: Normocephalic, atraumatic. Mouth: Moist. Neck: Supple, no thyroid nodules. Eyes: Normal conjunctiva, no scleral icterus. Lungs: Clear to auscultation bilaterally, no rubs, no wheezing. Cardiac: RRR. No murmurs, gallops, or rubs. Abdomen: Soft, normal bowel sounds. Extremities: No edema. Neuro: CN II-XII grossly intact. Psych: Alert and cooperative; normal mood. Heme: No palpable cervical lymph nodes. Skin: No visible rashes. ASSESSMENT: (Z00.00) Well adult exam (primary encounter diagnosis) (Z87.59, Z86.59) History of depression (J45.20) Mild intermittent asthma without complication (N93.9) Abnormal uterine bleeding (E28.2) PCOS (polycystic ovarian syndrome) (E66.9) Obesity (BMI 30-39.9) PLAN: - Discussed preventative health - Discussed diet and exercise - Resume reclipsen OCP, r/b/u/se discussed - Continue current medications - Follow up 1 year; prn for new or worsening symptoms Aleida Mauricio APRN.INFORMATION BROKER HEPATITIS B(1 of 3 - 3-dose series) Never done PNEUMOCOCCAL(1 - PCV) Never done SPIROMETRY Never done HPV TESTING Never done COVID-19 VACCINE(3 - Booster for Pfizer series) due on 12/17/2020 ANNUAL PCP TEAM CHRONIC DISEASE VISIT due on 10/26/2021 INFLUENZA(1) due on 12/28/2021 documented in this encounter [facility] 04-10-2022 Instructions Barbara Reynoso - 04/10/2022 12:54 PM EST [facility] BUILD[facility] LAB TEST INFORMATION [facility] BUILD[facility] LAB HOURS: Lab is open: 7:30am to 5:00pm - , 7:30am to 4:00pm on Sat and 8am -12pm on Sat. The lab is located in [facility] on the first floor. There is a registration window at the lab, available 7 am to 3 pm Saturday - Saturday. If registration is unavailable at the lab, you may register at the patient registration office near the [facility]. SCHEDULING A LAB APPOINTMENT: Laboratory appointments are recommended.Walk ins are still accepted. Call [phone] or schedule via [employer]ored scheduling ticket. ROUTINE LAB ORDERS 60 days after they are entered. If your lab orders , you may be required to wait in the lab while they are reinstated FUTURE ORDERS are lab tests to be completed on the EXPECTED date. These orders 60 days after the expected date. STANDING ORDERS are recurring orders with an expiration date. The interval will indicate how often the test should be completed. CT / MRI / IVP If you have lab tests ordered for one of these radiology exams, please complete the blood work at least one day prior to the scheduled exam. PRESCRIPTION REFILL REQUESTS Request prescription refills through your [employer]ored account or contact your Pharmacy. My Chart Schedule My Appointment enables you to view your established primary care provider's open schedule and book an appointment online in real-time. This feature is available in internal medicine, family medicine, or pediatrics at any of our [facility] locations and main campus. documented in this encounter [facility] 10-12-2021 Miscellaneous Notes Patient due for follow up, please assist in scheduling. lAeida Mauricio APRN.JESUS Pharmacy verified in [employer]. Patient has been identified by name and date of : Yes Patient aware RX will be sent to pharmacy. No need to notify patient. Patient phones for refill(s): Pending Prescriptions Disp Refills ALBUTEROL SULFATE HFA 90 MCG/ACTUATION AEROSOL INHALER 18 g 1 Sig: Inhale 2 Puffs as instructed every 4 hours as needed. MARGARITO: No Date of last office visit : 10/26/2020 Date of next office visit : Visit date not found Last 2 Encounter Wt Readings: Date: Wt: 07/15/2021 83.9 kg (185 lb) 05/04/2021 85 kg (187 lb 8 oz) Not applicable Please advise. Shilpi Phillips MA documented in this encounter [facility] 07-31-2021 Miscellaneous Notes Karen, Chele for reaching out with the follow-up. I agree, we definitely should move up to 150 mg. If there is no improvement within 10 days, August 10, let me know and then we can add on the Wellbutrin or switch over to something completely different like Prozac or Lexapro. I will make the changes and send in the new prescription and you can combine 50 mg with the 100 for a total dose of 150 mg. Give me a follow-up on how you are doing and keep me in the loop. Hira documented in this encounter [facility] 03-10-2021 Note HNO ID: [id number] Author: Marlene Islas APRN.CNM Service: Obstetrics Author Type: Clearing Supervisor Type: Progress Notes Filed: 03/10/2021 9:07 AM Note Text: OBSTETRICS PROGRESS NOTE SERVICE DATE: March 10, 2021 SERVICE TIME: 904 ASSESSMENT: 30 year old female who is Postoperative Day #3 status post , Low Transverse delivery with male . Doing well. Discharge home today. All questions addressed and answered. STATES LIDOCAINE PATCH DID NOT HELP WITH PAIN. MYLICON DID HELP PLAN: Routine care. Routine postop care. Encourage ambulation and IS usage. Encourage patient to use pain meds. . Control: VASECTOMY Discharge instructions given to patient regarding pelvic rest, bathing, stairs, walking, lifting, driving, and follow-up. Patient expresses understanding. Plan of care discussed with: Provider, RN, Patient. Anticipate discharge day: POD #2-3 SUBJECTIVE: Patient has no current complaints. Tolerating PO intake. Urinating without difficulty. Passing flatus. Pain well controlled with current regimen. Lochia decreasing. Ambulating without difficulty. OBJECTIVE: PHYSICAL EXAM: Heart: RR Lungs: clear to auscultation Breasts: Nipples intact, Colostrom expressed and Baby latching on Abdomen: Soft Bowel sounds present Fundus firm below umbilicus Non-distended Incision: Transverse incision C/D/I. Extremities: No calf tenderness and Edema equal bilaterally LAST VITALS: Pulse BP Resp O2 Sat Temp Pain 103 124/63 18 99 % 36.8 ?C (98.2 ?F) 8 Avg Min Max Vitals (last 12 hours) Flowsheet Row Name Average Min Max BP: Systolic 124 124 124 BP: Diastolic 63 63 63 Temp 36.8 ?C (98.2 ?F) 36.8 ?C (98.2 ?F) 36.8 ?C (98.2 ?F) Pulse 103 103 103 Resp 18 18 18 SpO2 99 % 99 % 99 % HT/WT/BMI: Height Weight BMI 154.9 cm (5' 1 ) 97.5 kg (215 lb) 40.62 LABS ABO/RH: 12/26/2020: A NEGATIVE 03/07/2021: A; Negative RUBELLA: 01/13/2021: 1.88 Index Value; positive HANDH: Hematocrit (%) Date Value 03/08/2021 27.2 03/07/2021 31.8 Hemoglobin (g/dL) Date Value 03/08/2021 8.1 03/07/2021 9.6 Diagnostic tests reviewed for today's visit: Most recent labs SIGNATURE: Marlene Hurst APRN.CNM PATIENT NAME: Karen Fernandez DATE: March 10, 2021 TIME: 9:05 AM [facility] 03-10-2021 Note HNO ID: [id number] Author: Tami Agee DO Service: Obstetrics Author Type: Resident Type: Progress Notes Filed: 03/10/2021 5:16 AM Note Text: OBSTETRICS PROGRESS NOTE SERVICE DATE: March 10, 2021 SERVICE TIME: 5:14 AM ASSESSMENT: 30 year old female who is Postoperative Day #3 status post , Low Transverse delivery with male . PLAN: Routine care -S/p LT CS -Male , s/p circumcision - -Meeting milestones -S/p duvall -Rh negative, rhogam as indicated -Mylicon and lidocaine patch added for back and shoulder pain ? Asthma -Mild -Asymptomatic -Albuterol prn ? Anemia -Hgb 9.6 ->8.1 -Was scheduled for venofer before scheduled section however did not receive due to PROM -S/p Venofer x1 Dispo -Per attending physician -Desires home today SUBJECTIVE: Patient has no current complaints. Tolerating PO intake. Urinating without difficulty. Passing flatus. Pain well controlled with current regimen. Lochia decreasing. Ambulating without difficulty. OBJECTIVE: PHYSICAL EXAM: Heart: RR Lungs: clear to auscultation Abdomen: Soft Fundus firm below umbilicus Non-distended Incision: Transverse incision C/D/I with steri-strips. Extremities: No calf tenderness and Edema equal bilaterally LAST VITALS: Pulse BP Resp O2 Sat Temp Pain 103 124/63 18 99 % 36.8 ?C (98.2 ?F) 0 Avg Min Max Vitals (last 12 hours) Flowsheet Row Name Average Min Max BP: Systolic 124 124 124 BP: Diastolic 63 63 63 Temp 36.8 ?C (98.2 ?F) 36.8 ?C (98.2 ?F) 36.8 ?C (98.2 ?F) Pulse 103 103 103 Resp 18 18 18 SpO2 99 % 99 % 99 % HT/WT/BMI: Height Weight BMI 154.9 cm (5' 1 ) 97.5 kg (215 lb) 40.62 LABS ABO/RH: 12/26/2020: A NEGATIVE 03/07/2021: A; Negative RUBELLA: 01/13/2021: 1.88 Index Value; positive HANDH: Hematocrit (%) Date Value 03/08/2021 27.2 03/07/2021 31.8 Hemoglobin (g/dL) Date Value 03/08/2021 8.1 03/07/2021 9.6 Diagnostic tests reviewed for today's visit: Most recent labs and imaging results. SIGNATURE: Tami Agee DO PATIENT NAME: Karen Fernandez DATE: March 10, 2021 TIME: 5:14 AM [facility] 03-09-2021 Note HNO ID: [id number] Author: Marlene Islas APRN.CNM Service: Obstetrics Author Type: Clearing Supervisor Type: Progress Notes Filed: 03/09/2021 8:27 AM Note Text: OBSTETRICS PROGRESS NOTE SERVICE DATE: March 09, 2021 SERVICE TIME: 824 ASSESSMENT: 30 year old female who is Postoperative Day #2 status post , Low Transverse delivery with male . Complaint of shoulder, back and incision pain. Encouraged to ambulate. Mylicon to schedule, Heating pad for back, lidocaine patches to incision PLAN: Routine care. Routine postop care. Encourage ambulation and IS usage. Encourage patient to use pain meds. . Control: vasectomy Discharge instructions given to patient regarding pelvic rest, bathing, stairs, walking, lifting, driving, and follow-up. Patient expresses understanding. Plan of care discussed with: Provider, RN, Patient. Anticipate discharge day: POD #2-3 SUBJECTIVE: Patient has no current complaints. Tolerating PO intake. Urinating without difficulty. Passing flatus. Pain well controlled with current regimen. Lochia decreasing. Ambulating without difficulty. OBJECTIVE: PHYSICAL EXAM: Heart: RR Lungs: clear to auscultation Breasts: Nipples intact and Colostrom expressed Abdomen: Soft Bowel sounds present Fundus firm below umbilicus Non-distended Incision: Transverse incision C/D/I. Extremities: No calf tenderness and Edema equal bilaterally LAST VITALS: Pulse BP Resp O2 Sat Temp Pain 83 122/72 17 97 % 36.9 ?C (98.4 ?F) 4 Avg Min Max Vitals (last 12 hours) Flowsheet Row Name Average Min Max BP: Systolic 128.50 122 135 BP: Diastolic 69 66 72 Temp 36.8 ?C (98.25 ?F) 36.7 ?C (98.1 ?F) 36.9 ?C (98.4 ?F) Pulse 89.5 83 96 Resp 16.5 16 17 SpO2 96.5 % 96 % 97 % HT/WT/BMI: Height Weight BMI 154.9 cm (5' 1 ) 97.5 kg (215 lb) 40.62 LABS ABO/RH: 12/26/2020: A NEGATIVE 03/07/2021: A; Negative RUBELLA: 01/13/2021: 1.88 Index Value; positive HANDH: Hematocrit (%) Date Value 03/08/2021 27.2 03/07/2021 31.8 Hemoglobin (g/dL) Date Value 03/08/2021 8.1 03/07/2021 9.6 Diagnostic tests reviewed for today's visit: Most recent labs SIGNATURE: Marlene Hurst APRN.CNM PATIENT NAME: Karen Fernandez DATE: March 09, 2021 TIME: 8:24 AM [facility] 03-09-2021 Note HNO ID: [id number] Author: Tami Agee DO Service: Obstetrics Author Type: Resident Type: Progress Notes Filed: 03/09/2021 5:30 AM Note Text: OBSTETRICS PROGRESS NOTE SERVICE DATE: March 09, 2021 SERVICE TIME: 5:28 AM ASSESSMENT: 30 year old female who is Postoperative Day #2 status post , Low Transverse delivery with male . PLAN: Routine care -S/p LT CS -Male infant, s/p circumcision - -Meeting milestones -S/p duvall -Rh negative, rhogam as indicated -Passing flatus ? Asthma -Mild -Asymptomatic -Albuterol prn ? Anemia -Hgb 9.6 ->8.1 -Was scheduled for venofer before scheduled section however did not receive due to PROM -S/p Venofer x1 ? Depression -Mood stable on Zoloft SUBJECTIVE: Patient has no current complaints. Tolerating PO intake. Urinating without difficulty. Passing flatus. Pain well controlled with current regimen. Lochia decreasing. Ambulating without difficulty. OBJECTIVE: PHYSICAL EXAM: Heart: RR Lungs: Normal respiratory effort on room air Abdomen: Soft Appropriately tender to palpation Fundus firm below umbilicus Mildly distended Incision: Transverse incision C/D/I. Extremities: No calf tenderness and Edema equal bilaterally LAST VITALS: Pulse BP Resp O2 Sat Temp Pain 96 135/66 16 96 % 36.7 ?C (98.1 ?F) 3 Avg Min Max Vitals (last 12 hours) Flowsheet Row Name Average Min Max BP: Systolic 135 135 135 BP: Diastolic 66 66 66 Temp 36.7 ?C (98.1 ?F) 36.7 ?C (98.1 ?F) 36.7 ?C (98.1 ?F) Pulse 96 96 96 Resp 16 16 16 SpO2 96 % 96 % 96 % HT/WT/BMI: Height Weight BMI 154.9 cm (5' 1 ) 97.5 kg (215 lb) 40.62 LABS ABO/RH: 12/26/2020: A NEGATIVE 03/07/2021: A; Negative RUBELLA: 01/13/2021: 1.88 Index Value; positive HANDH: Hematocrit (%) Date Value 03/08/2021 27.2 03/07/2021 31.8 Hemoglobin (g/dL) Date Value 03/08/2021 8.1 03/07/2021 9.6 Diagnostic tests reviewed for today's visit: Most recent labs SIGNATURE: Tami Agee DO PATIENT NAME: Karen Fernandez DATE: March 09, 2021 TIME: 5:17 AM [facility] 03-08-2021 Note HNO ID: [id number] Author: Marlene Islas APRN.CNM Service: Obstetrics Author Type: Clearing Supervisor Type: Progress Notes Filed: 03/08/2021 7:54 AM Note Text: OBSTETRICS PROGRESS NOTE SERVICE DATE: March 08, 2021 SERVICE TIME: 0750 ASSESSMENT: 30 year old female who is Postoperative Day #1 status post , Low Transverse delivery with male . Doing well. Planning vasectomy. Has breast pump PLAN: Routine care. Routine postop care. Encourage ambulation and IS usage. Encourage patient to use pain meds. . Control: plans vasectomy Plan of care discussed with: Provider, RN, Patient. Anticipate discharge day: POD #2-3 From resident note -Male infant - -Meeting milestones -S/p duvall -Rh negative, rhogam as indicated -Passing flatus ? Decreased urine output -Resolved -S/p 1L bolus ? Asthma -Mild -asymptomatic -albuterol prn ? Anemia -Hgb 9.6 ->AM pending -Was scheduled for venofer before scheduled section however did not receive due to PROM -Venofer ordered for post ? Depression -Mood stable on Zoloft ? COVID-19 VACCINE FOR PATIENT Discussed COVID-19 vaccine while . The CDC and ACOG recommend COVID-19 vaccination for people who are . Women under age 50 can receive any of the FDA-authorized COVID-19 vaccines. The risk from COVID-19 outweighs any known risk related to the available vaccines. Patient is aware of the rare risk of TTS (thrombosis with thrombocytopenia syndrome) associated with the [employer] COVID-19 vaccine. If other FDA-authorized COVID-19 vaccines are available (i.e., mRNA vaccines) these can also be considered. Patient decision: completed 2 SUBJECTIVE: Patient has no current complaints. Tolerating PO intake. Urinating without difficulty. Passing flatus. Pain well controlled with current regimen. Lochia decreasing. Ambulating without difficulty. OBJECTIVE: PHYSICAL EXAM: Heart: RR Lungs: clear to auscultation Breasts: Nipples intact and Colostrom expressed Abdomen: Soft Bowel sounds present Fundus firm below umbilicus Non-distended Incision: Transverse incision C/D/I with steri-strips. Extremities: No calf tenderness and Edema equal bilaterally LAST VITALS: Pulse BP Resp O2 Sat Temp Pain 85 116/69 16 98 % 36.8 ?C (98.2 ?F) 3 Avg Min Max Vitals (last 12 hours) Flowsheet Row Name Average Min Max BP: Systolic 112.50 109 116 BP: Diastolic 66.50 64 69 Temp 36.8 ?C (98.3 ?F) 36.8 ?C (98.2 ?F) 36.9 ?C (98.4 ?F) Pulse 86 85 87 Resp 17 16 18 SpO2 98.5 % 98 % 99 % HT/WT/BMI: Height Weight BMI 154.9 cm (5' 1 ) 97.5 kg (215 lb) 40.62 LABS ABO/RH: 12/26/2020: A NEGATIVE 03/07/2021: A; Negative RUBELLA: 01/13/2021: 1.88 Index Value; positive HANDH: Hematocrit (%) Date Value 03/08/2021 27.2 03/07/2021 31.8 Hemoglobin (g/dL) Date Value 03/08/2021 8.1 03/07/2021 9.6 Diagnostic tests reviewed for today's visit: Most recent labs SIGNATURE: Marlene Hurts APRN.CNM PATIENT NAME: Karen Fernandez DATE: March 08, 2021 TIME: 7:52 AM [facility] 03-08-2021 Note HNO ID: [id number] Author: Tami Agee DO Service: Obstetrics Author Type: Resident Type: Progress Notes Filed: 03/08/2021 5:12 AM Note Text: OBSTETRICS PROGRESS NOTE SERVICE DATE: March 08, 2021 SERVICE TIME: 4:45 AM ASSESSMENT: 30 year old female who is Postoperative Day #1 status post , Low Transverse delivery with male . PLAN: Routine care -S/p LT CS -Male infant - -Meeting milestones -S/p duvall -Rh negative, rhogam as indicated -Passing flatus Decreased urine output -Resolved -S/p 1L bolus Asthma -Mild -asymptomatic -albuterol prn Anemia -Hgb 9.6 ->AM pending -Was scheduled for venofer before scheduled section however did not receive due to PROM -Venofer ordered for post Depression -Mood stable on Zoloft Plan of care discussed with: Provider, RN, Patient. Anticipate discharge day: POD #2-3 SUBJECTIVE: Patient has no current complaints. Tolerating PO intake. Urinating without difficulty. Passing flatus. Pain well controlled with current regimen. Lochia decreasing. Ambulating without difficulty. OBJECTIVE: PHYSICAL EXAM: Heart: RR Lungs: normal respiratory effort on room air Abdomen: Soft Appropriately tender to palpation Fundus firm below umbilicus Non-distended Incision: Transverse incision C/D/I with steri-strips. Extremities: No calf tenderness and No edema LAST VITALS: Pulse BP Resp O2 Sat Temp Pain 85 116/69 16 98 % 36.8 ?C (98.2 ?F) 0 (pt asleep) Avg Min Max Vitals (last 12 hours) Flowsheet Row Name Average Min Max BP: Systolic 112.67 109 116 BP: Diastolic 67 64 69 Temp 37 ?C (98.57 ?F) 36.8 ?C (98.2 ?F) 37.3 ?C (99.1 ?F) Pulse 88.67 85 94 Resp 17.33 16 18 SpO2 98.33 % 98 % 99 % HT/WT/BMI: Height Weight BMI 154.9 cm (5' 1 ) 97.5 kg (215 lb) 40.62 LABS ABO/RH: 12/26/2020: A NEGATIVE 03/07/2021: A; Negative RUBELLA: 01/13/2021: 1.88 Index Value; positive HANDH: Hematocrit (%) Date Value 03/07/2021 31.8 Hemoglobin (g/dL) Date Value 03/07/2021 9.6 Diagnostic tests reviewed for today's visit: Most recent labs SIGNATURE: Tami Agee DO PATIENT NAME: Karen Fernandez DATE: March 08, 2021 TIME: 4:44 AM [facility] documented as of this encounter (statuses as of 07/31/2021) [facility]11-09-2021 History of Past illness Narrative* Problem Noted Date Resolved Date PROM (premature rupture of membranes) 03/07/2021 03/10/2021 Overview: -PROM for clear fluid at 2230 -Plan for repeat section -Gentamycin and clindamycin due to PCN allergy -TxA -SCD's ordered -Spinal anesthesia Polyhydramnios in third trimester 09/28/2019 10/06/2019 Overview: -VIRGEN on 09/27 of Insulin controlled gestation al diabetes mellitus (GDM) in third trimester 09/17/2019 10/06/2019 Overview: -GDMA2 -Measures her blood sugars 4x per day: fasting 82-95 , B 115, L 115, D 120 -Insulin regimen was recently adjusted: -10units of Humalog in the morning, 8u at lunch, 7u at dinner, and 20units NPH QHS -Blood glucose 88 on admission Abdominal pain 08/20/2019 09/23/2019 Overview: -Patient appears comfortable on exam -Udip showing signs of dehydration with presence of ketones and protein -Thus patient's abdominal discomfort likely due to her dehydration -Patient's pain subjectively improved with PO hydration in the OB ED -Encouraged regular hydration at home Gestational diabetes mellitus, class A1 08/10/19 20 09/28/2019 Overview: Insulin started 08/10/2019 Family history of thyroid disease 2018 08/10/2019 PCOS (polycystic ovarian syndrome) 05/06/2018 08/10/2019 Dysplasia of cervix, low grade (MANDY 1) 2 08/10/2019 Overview: s/p cryotherapy 07/2012; neg pap since Pap Hx: 09/2008 neg pap 09/2009 neg pap 04/08 ASCUS +HRHPV 09/2011 LSIL 10/2011 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 07/2012 s/p cryotherapy 09/2012 neg pap 12/2012 neg pap 04/2018 neg pap documented as of this encounter (statuses as of 08/25/2021) [facility]11-09-2021 History of Past illness Narrative* Problem Noted Date Resolved Date PROM (premature rupture of membranes) 03/07/2021 03/10/2021 Overview: -PROM for clear fluid at 2230 -Plan for repeat section -Gentamycin and clindamycin due to PCN allergy -TxA -SCD's ordered -Spinal anesthesia Polyhydramnios in third trimester 09/28/2019 10/06/2019 Overview: -VIRGEN on 09/27 Insulin controlled gestation al diabetes mellitus (GDM) in third trimester 09/17/2019 10/06/2019 Overview: -GDMA2 -Measures her blood sugars 4x per day: fasting 82-95 , B 115, L 115, D 120 -Insulin regimen was recently adjusted: -10units of Humalog in the morning, 8u at lunch, 7u at dinner, and 20units NPH QHS -Blood glucose 88 on admission Abdominal pain 08/20/2019 09/23/2019 Overview: -Patient appears comfortable on exam -Udip showing signs of dehydration with presence of ketones and protein -Thus patient's abdominal discomfort likely due to her dehydration -Patient's pain subjectively improved with PO hydration in the OB ED -Encouraged regular hydration at home Gestational diabetes mellitus, class A1 08/10/19 20 09/28/2019 Overview: Insulin started 08/10/2019 Family history of thyroid disease 2018 08/10/2019 PCOS (polycystic ovarian syndrome) 05/06/2018 08/10/2019 Dysplasia of cervix, low grade (MANDY 1) 2 08/10/2019 Overview: s/p cryotherapy 07/2012; neg pap since Pap Hx: 09/2008 neg pap 09/2009 neg pap 04/08 ASCUS +HRHPV 09/2011 LSIL 10/2011 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 07/2012 s/p cryotherapy 09/2012 neg pap 12/2012 neg pap 04/2018 neg pap documented as of this encounter (statuses as of 10/12/2021) [facility]11-09-2021 History of Past illness Narrative* Problem Noted Date Resolved Date PROM (premature rupture of membranes) 03/07/2021 03/10/2021 Overview: -PROM for clear fluid at 2230 -Plan for repeat section -Gentamycin and clindamycin due to PCN allergy -TxA -SCD's ordered -Spinal anesthesia Polyhydramnios in third trimester 09/28/2019 10/06/2019 Overview: -VIRGEN on 09/27 Insulin controlled gestation al diabetes mellitus (GDM) in third trimester 09/17/2019 10/06/2019 Overview: -GDMA2 -Measures her blood sugars 4x per day: fasting 82-95 , B 115, L 115, D 120 -Insulin regimen was recently adjusted: -10units of Humalog in the morning, 8u at lunch, 7u at dinner, and 20units NPH QHS -Blood glucose 88 on admission Abdominal pain 08/20/2019 09/23/2019 Overview: -Patient appears comfortable on exam -Udip showing signs of dehydration with presence of ketones and protein -Thus patient's abdominal discomfort likely due to her dehydration -Patient's pain subjectively improved with PO hydration in the OB ED -Encouraged regular hydration at home Gestational diabetes mellitus, class A1 08/10/19 20 09/28/2019 Overview: Insulin started 08/10/2019 Family history of thyroid disease 2018 08/10/2019 PCOS (polycystic ovarian syndrome) 05/06/2018 08/10/2019 Dysplasia of cervix, low grade (MANDY 1) 2 08/10/2019 Overview: s/p cryotherapy 07/2012; neg pap since Pap Hx: 09/2008 neg pap 09/2009 neg pap 04/08 ASCUS +HRHPV 09/2011 LSIL 10/2011 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 07/2012 s/p cryotherapy 09/2012 neg pap 12/2012 neg pap 04/2018 neg pap documented as of this encounter (statuses as of 02/16/2022) [facility]11-09-2021 History of Past illness Narrative* Problem Noted Date Resolved Date PROM (premature rupture of membranes) 03/07/2021 03/10/2021 Overview: -PROM for clear fluid at 2230 -Plan for repeat section -Gentamycin and clindamycin due to PCN allergy -TxA -SCD's ordered -Spinal anesthesia Polyhydramnios in third trimester 09/28/2019 10/06/2019 Overview: -VIRGEN on 09/27 Insulin controlled gestation al diabetes mellitus (GDM) in third trimester 09/17/2019 10/06/2019 Overview: -GDMA2 -Measures her blood sugars 4x per day: fasting 82-95 , B 115, L 115, D 120 -Insulin regimen was recently adjusted: -10units of Humalog in the morning, 8u at lunch, 7u at dinner, and 20units NPH QHS -Blood glucose 88 on admission Abdominal pain 08/20/2019 09/23/2019 Overview: -Patient appears comfortable on exam -Udip showing signs of dehydration with presence of ketones and protein -Thus patient's abdominal discomfort likely due to her dehydration -Patient's pain subjectively improved with PO hydration in the OB ED -Encouraged regular hydration at home Gestational diabetes mellitus, class A1 08/10/19 20 09/28/2019 Overview: Insulin started 08/10/2019 Family history of thyroid disease 2018 08/10/2019 PCOS (polycystic ovarian syndrome) 05/06/2018 08/10/2019 Dysplasia of cervix, low grade (MANDY 1) 2 08/10/2019 Overview: s/p cryotherapy 07/2012; neg pap since Pap Hx: 09/2008 neg pap 09/2009 neg pap 04/08 ASCUS +HRHPV 09/2011 LSIL 10/2011 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 07/2012 s/p cryotherapy 09/2012 neg pap 12/2012 neg pap 04/2018 neg pap documented as of this encounter (statuses as of 04/10/2022) [facility]11-09-2021 History of Past illness Narrative* Problem Noted Date Resolved Date PROM (premature rupture of membranes) 03/07/2021 03/10/2021 Overview: -PROM for clear fluid at 2230 -Plan for repeat section -Gentamycin and clindamycin due to PCN allergy -TxA -SCD's ordered -Spinal anesthesia Polyhydramnios in third trimester 09/28/2019 10/06/2019 Overview: -VIRGEN on 09/27 Insulin controlled gestation al diabetes mellitus (GDM) in third trimester 09/17/2019 10/06/2019 Overview: -GDMA2 -Measures her blood sugars 4x per day: fasting 82-95 , B 115, L 115, D 120 -Insulin regimen was recently adjusted: -10units of Humalog in the morning, 8u at lunch, 7u at dinner, and 20units NPH QHS -Blood glucose 88 on admission Abdominal pain 08/20/2019 09/23/2019 Overview: -Patient appears comfortable on exam -Udip showing signs of dehydration with presence of ketones and protein -Thus patient's abdominal discomfort likely due to her dehydration -Patient's pain subjectively improved with PO hydration in the OB ED -Encouraged regular hydration at home Gestational diabetes mellitus, class A1 08/10/19 20 09/28/2019 Overview: Insulin started 08/10/2019 Family history of thyroid disease 2018 08/10/2019 PCOS (polycystic ovarian syndrome) 05/06/2018 08/10/2019 Dysplasia of cervix, low grade (MANDY 1) 2 08/10/2019 Overview: s/p cryotherapy 07/2012; neg pap since Pap Hx: 09/2008 neg pap 09/2009 neg pap 04/08 ASCUS +HRHPV 09/2011 LSIL 10/2011 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 07/2012 s/p cryotherapy 09/2012 neg pap 12/2012 neg pap 04/2018 neg pap documented as of this encounter (statuses as of 05/04/2022) [facility]11-09-2021 History of Past illness Narrative* Problem Noted Date Resolved Date PROM (premature rupture of membranes) 03/07/2021 03/10/2021 Overview: -PROM for clear fluid at 2230 -Plan for repeat section -Gentamycin and clindamycin due to PCN allergy -TxA -SCD's ordered -Spinal anesthesia Polyhydramnios in third trimester 09/28/2019 10/06/2019 Overview: -VIRGEN on 09/27 Insulin controlled gestation al diabetes mellitus (GDM) in third trimester 09/17/2019 10/06/2019 Overview: -GDMA2 -Measures her blood sugars 4x per day: fasting 82-95 , B 115, L 115, D 120 -Insulin regimen was recently adjusted: -10units of Humalog in the morning, 8u at lunch, 7u at dinner, and 20units NPH QHS -Blood glucose 88 on admission Abdominal pain 08/20/2019 09/23/2019 Overview: -Patient appears comfortable on exam -Udip showing signs of dehydration with presence of ketones and protein -Thus patient's abdominal discomfort likely due to her dehydration -Patient's pain subjectively improved with PO hydration in the OB ED -Encouraged regular hydration at home Gestational diabetes mellitus, class A1 08/10/19 20 09/28/2019 Overview: Insulin started 08/10/2019 Family history of thyroid disease 2018 08/10/2019 PCOS (polycystic ovarian syndrome) 05/06/2018 08/10/2019 Dysplasia of cervix, low grade (MANDY 1) 2 08/10/2019 Overview: s/p cryotherapy 07/2012; neg pap since Pap Hx: 09/2008 neg pap 09/2009 neg pap 04/08 ASCUS +HRHPV 09/2011 LSIL 10/2011 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 07/2012 s/p cryotherapy 09/2012 neg pap 12/2012 neg pap 04/2018 neg pap documented as of this encounter (statuses as of 05/10/2022) [facility]11-09-2021 History of Past illness Narrative* Problem Noted Date Resolved Date PROM (premature rupture of membranes) 03/07/2021 03/10/2021 Overview: -PROM for clear fluid at 2230 -Plan for repeat section -Gentamycin and clindamycin due to PCN allergy -TxA -SCD's ordered -Spinal anesthesia Polyhydramnios in third trimester 09/28/2019 10/06/2019 Overview: -VIRGEN on 09/27 Insulin controlled gestation al diabetes mellitus (GDM) in third trimester 09/17/2019 10/06/2019 Overview: -GDMA2 -Measures her blood sugars 4x per day: fasting 82-95 , B 115, L 115, D 120 -Insulin regimen was recently adjusted: -10units of Humalog in the morning, 8u at lunch, 7u at dinner, and 20units NPH QHS -Blood glucose 88 on admission Abdominal pain 08/20/2019 09/23/2019 Overview: -Patient appears comfortable on exam -Udip showing signs of dehydration with presence of ketones and protein -Thus patient's abdominal discomfort likely due to her dehydration -Patient's pain subjectively improved with PO hydration in the OB ED -Encouraged regular hydration at home Gestational diabetes mellitus, class A1 08/10/19 20 09/28/2019 Overview: Insulin started 08/10/2019 Family history of thyroid disease 2018 08/10/2019 PCOS (polycystic ovarian syndrome) 05/06/2018 08/10/2019 Dysplasia of cervix, low grade (MANDY 1) 2 08/10/2019 Overview: s/p cryotherapy 07/2012; neg pap since Pap Hx: 09/2008 neg pap 09/2009 neg pap 04/08 ASCUS +HRHPV 09/2011 LSIL 10/2011 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 07/2012 s/p cryotherapy 09/2012 neg pap 12/2012 neg pap 04/2018 neg pap documented as of this encounter (statuses as of 05/14/2022) [facility]11-09-2021 History of Past illness Narrative* Problem Noted Date Resolved Date PROM (premature rupture of membranes) 03/07/2021 03/10/2021 Overview: -PROM for clear fluid at 2230 -Plan for repeat section -Gentamycin and clindamycin due to PCN allergy -TxA -SCD's ordered -Spinal anesthesia Polyhydramnios in third trimester 09/28/2019 10/06/2019 Overview: -VIRGEN on 09/27 Insulin controlled gestation al diabetes mellitus (GDM) in third trimester 09/17/2019 10/06/2019 Overview: -GDMA2 -Measures her blood sugars 4x per day: fasting 82-95 , B 115, L 115, D 120 -Insulin regimen was recently adjusted: -10units of Humalog in the morning, 8u at lunch, 7u at dinner, and 20units NPH QHS -Blood glucose 88 on admission Abdominal pain 08/20/2019 09/23/2019 Overview: -Patient appears comfortable on exam -Udip showing signs of dehydration with presence of ketones and protein -Thus patient's abdominal discomfort likely due to her dehydration -Patient's pain subjectively improved with PO hydration in the OB ED -Encouraged regular hydration at home Gestational diabetes mellitus, class A1 08/10/19 20 09/28/2019 Overview: Insulin started 08/10/2019 Family history of thyroid disease 2018 08/10/2019 PCOS (polycystic ovarian syndrome) 05/06/2018 08/10/2019 Dysplasia of cervix, low grade (MANDY 1) 2 08/10/2019 Overview: s/p cryotherapy 07/2012; neg pap since Pap Hx: 09/2008 neg pap 09/2009 neg pap 04/08 ASCUS +HRHPV 09/2011 LSIL 10/2011 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 07/2012 s/p cryotherapy 09/2012 neg pap 12/2012 neg pap 04/2018 neg pap documented as of this encounter (statuses as of 06/22/2022) [facility]11-09-2021 History of Past illness Narrative* Problem Noted Date Resolved Date PROM (premature rupture of membranes) 03/07/2021 03/10/2021 Overview: -PROM for clear fluid at 2230 -Plan for repeat section -Gentamycin and clindamycin due to PCN allergy -TxA -SCD's ordered -Spinal anesthesia Polyhydramnios in third trimester 09/28/2019 10/06/2019 Overview: -VIRGEN on 09/27 Insulin controlled gestation al diabetes mellitus (GDM) in third trimester 09/17/2019 10/06/2019 Overview: -GDMA2 -Measures her blood sugars 4x per day: fasting 82-95 , B 115, L 115, D 120 -Insulin regimen was recently adjusted: -10units of Humalog in the morning, 8u at lunch, 7u at dinner, and 20units NPH QHS -Blood glucose 88 on admission Abdominal pain 08/20/2019 09/23/2019 Overview: -Patient appears comfortable on exam -Udip showing signs of dehydration with presence of ketones and protein -Thus patient's abdominal discomfort likely due to her dehydration -Patient's pain subjectively improved with PO hydration in the OB ED -Encouraged regular hydration at home Gestational diabetes mellitus, class A1 08/10/19 20 09/28/2019 Overview: Insulin started 08/10/2019 Family history of thyroid disease 2018 08/10/2019 PCOS (polycystic ovarian syndrome) 05/06/2018 08/10/2019 Dysplasia of cervix, low grade (MANDY 1) 2 08/10/2019 Overview: s/p cryotherapy 07/2012; neg pap since Pap Hx: 09/2008 neg pap 09/2009 neg pap 04/08 ASCUS +HRHPV 09/2011 LSIL 10/2011 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 07/2012 s/p cryotherapy 09/2012 neg pap 12/2012 neg pap 04/2018 neg pap documented as of this encounter (statuses as of 07/09/2022) [facility]11-09-2021 History of Past illness Narrative* Problem Noted Date Resolved Date PROM (premature rupture of membranes) 03/07/2021 03/10/2021 Overview: -PROM for clear fluid at 2230 -Plan for repeat section -Gentamycin and clindamycin due to PCN allergy -TxA -SCD's ordered -Spinal anesthesia Polyhydramnios in third trimester 09/28/2019 10/06/2019 Overview: -VIRGEN on 09/27 Insulin controlled gestation al diabetes mellitus (GDM) in third trimester 09/17/2019 10/06/2019 Overview: -GDMA2 -Measures her blood sugars 4x per day: fasting 82-95 , B 115, L 115, D 120 -Insulin regimen was recently adjusted: -10units of Humalog in the morning, 8u at lunch, 7u at dinner, and 20units NPH QHS -Blood glucose 88 on admission Abdominal pain 08/20/2019 09/23/2019 Overview: -Patient appears comfortable on exam -Udip showing signs of dehydration with presence of ketones and protein -Thus patient's abdominal discomfort likely due to her dehydration -Patient's pain subjectively improved with PO hydration in the OB ED -Encouraged regular hydration at home Gestational diabetes mellitus, class A1 08/10/19 20 09/28/2019 Overview: Insulin started 08/10/2019 Family history of thyroid disease 2018 08/10/2019 PCOS (polycystic ovarian syndrome) 05/06/2018 08/10/2019 Dysplasia of cervix, low grade (MANDY 1) 2 08/10/2019 Overview: s/p cryotherapy 07/2012; neg pap since Pap Hx: 09/2008 neg pap 09/2009 neg pap 04/08 ASCUS +HRHPV 09/2011 LSIL 10/2011 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 07/2012 s/p cryotherapy 09/2012 neg pap 12/2012 neg pap 04/2018 neg pap documented as of this encounter (statuses as of 07/09/2022) [facility]11-09-2021 History of Past illness Narrative* Problem Noted Date Resolved Date PROM (premature rupture of membranes) 03/07/2021 03/10/2021 Overview: -PROM for clear fluid at 2230 -Plan for repeat section -Gentamycin and clindamycin due to PCN allergy -TxA -SCD's ordered -Spinal anesthesia Polyhydramnios in third trimester 09/28/2019 10/06/2019 Overview: -VIRGEN on 09/27 Insulin controlled gestation al diabetes mellitus (GDM) in third trimester 09/17/2019 10/06/2019 Overview: -GDMA2 -Measures her blood sugars 4x per day: fasting 82-95 , B 115, L 115, D 120 -Insulin regimen was recently adjusted: -10units of Humalog in the morning, 8u at lunch, 7u at dinner, and 20units NPH QHS -Blood glucose 88 on admission Abdominal pain 08/20/2019 09/23/2019 Overview: -Patient appears comfortable on exam -Udip showing signs of dehydration with presence of ketones and protein -Thus patient's abdominal discomfort likely due to her dehydration -Patient's pain subjectively improved with PO hydration in the OB ED -Encouraged regular hydration at home Gestational diabetes mellitus, class A1 08/10/19 20 09/28/2019 Overview: Insulin started 08/10/2019 Family history of thyroid disease 2018 08/10/2019 PCOS (polycystic ovarian syndrome) 05/06/2018 08/10/2019 Dysplasia of cervix, low grade (MANDY 1) 2 08/10/2019 Overview: s/p cryotherapy 07/2012; neg pap since Pap Hx: 09/2008 neg pap 09/2009 neg pap 04/08 ASCUS +HRHPV 09/2011 LSIL 10/2011 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 07/2012 s/p cryotherapy 09/2012 neg pap 12/2012 neg pap 04/2018 neg pap documented as of this encounter (statuses as of 09/29/2022) [facility]11-09-2021 History of Past illness Narrative* Problem Noted Date Resolved Date PROM (premature rupture of membranes) 03/07/2021 03/10/2021 Overview: -PROM for clear fluid at 2230 -Plan for repeat section -Gentamycin and clindamycin due to PCN allergy -TxA -SCD's ordered -Spinal anesthesia Polyhydramnios in third trimester 09/28/2019 10/06/2019 Overview: -VIRGEN on 09/27 Insulin controlled gestation al diabetes mellitus (GDM) in third trimester 09/17/2019 10/06/2019 Overview: -GDMA2 -Measures her blood sugars 4x per day: fasting 82-95 , B 115, L 115, D 120 -Insulin regimen was recently adjusted: -10units of Humalog in the morning, 8u at lunch, 7u at dinner, and 20units NPH QHS -Blood glucose 88 on admission Abdominal pain 08/20/2019 09/23/2019 Overview: -Patient appears comfortable on exam -Udip showing signs of dehydration with presence of ketones and protein -Thus patient's abdominal discomfort likely due to her dehydration -Patient's pain subjectively improved with PO hydration in the OB ED -Encouraged regular hydration at home Gestational diabetes mellitus, class A1 08/10/19 20 09/28/2019 Overview: Insulin started 08/10/2019 Family history of thyroid disease 2018 08/10/2019 PCOS (polycystic ovarian syndrome) 05/06/2018 08/10/2019 Dysplasia of cervix, low grade (MANDY 1) 2 08/10/2019 Overview: s/p cryotherapy 07/2012; neg pap since Pap Hx: 09/2008 neg pap 09/2009 neg pap 04/08 ASCUS +HRHPV 09/2011 LSIL 10/2011 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 07/2012 s/p cryotherapy 09/2012 neg pap 12/2012 neg pap 04/2018 neg pap documented as of this encounter (statuses as of 10/22/2022) [facility]11-09-2021 History of Past illness Narrative* Problem Noted Date Resolved Date PROM (premature rupture of membranes) 03/07/2021 03/10/2021 Overview: -PROM for clear fluid at 2230 -Plan for repeat section -Gentamycin and clindamycin due to PCN allergy -TxA -SCD's ordered -Spinal anesthesia Polyhydramnios in third trimester 09/28/2019 10/06/2019 Overview: -VIRGEN on 09/27 Insulin controlled gestation al diabetes mellitus (GDM) in third trimester 09/17/2019 10/06/2019 Overview: -GDMA2 -Measures her blood sugars 4x per day: fasting 82-95 , B 115, L 115, D 120 -Insulin regimen was recently adjusted: -10units of Humalog in the morning, 8u at lunch, 7u at dinner, and 20units NPH QHS -Blood glucose 88 on admission Abdominal pain 08/20/2019 09/23/2019 Overview: -Patient appears comfortable on exam -Udip showing signs of dehydration with presence of ketones and protein -Thus patient's abdominal discomfort likely due to her dehydration -Patient's pain subjectively improved with PO hydration in the OB ED -Encouraged regular hydration at home Gestational diabetes mellitus, class A1 08/10/19 20 09/28/2019 Overview: Insulin started 08/10/2019 Family history of thyroid disease 2018 08/10/2019 PCOS (polycystic ovarian syndrome) 05/06/2018 08/10/2019 Dysplasia of cervix, low grade (MANDY 1) 2 08/10/2019 Overview: s/p cryotherapy 07/2012; neg pap since Pap Hx: 09/2008 neg pap 09/2009 neg pap 04/08 ASCUS +HRHPV 09/2011 LSIL 10/2011 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 07/2012 s/p cryotherapy 09/2012 neg pap 12/2012 neg pap 04/2018 neg pap documented as of this encounter (statuses as of 10/24/2022) [facility]-09-2021 History of Past illness Narrative* Problem Noted Date Diagnosed Date Resolved Date PROM (premature rupture of membranes) 03/07/2021 03/10/2021 Overview: -PROM for clear fluid at 2230 -Plan for repeat section -Gentamycin and clindamycin due to PCN allergy -TxA -SCD's ordered -Spinal anesthesia Polyhydramnios in third trimester 09/28/2019 10/06/2019 Overview: -VIRGEN on 09/27 Insulin controlled gestation al diabetes mellitus (GDM) in third trimester 09/17/20192019 Overview: -GDMA2 -Measures her blood sugars 4x per day: fasting 82-95 , B 115, L 115, D 120 -Insulin regimen was recently adjusted: -10units of Humalog in the morning, 8u at lunch, 7u at dinner, and 20units NPH QHS -Blood glucose 88 on admission Abdominal pain 08/20/2019 09/23/2019 Overview: -Patient appears comfortable on exam -Udip showing signs of dehydration with presence of ketones and protein -Thus patient's abdominal discomfort likely due to her dehydration -Patient's pain subjectively improved with PO hydration in the OB ED -Encouraged regular hydration at home Gestational diabetes mellitus, class A1 08/10/2019 09/28/2019 Overview: Insulin started 08/10/2019 Family history of thyroid disease 2018 08/10/2019 PCOS (polycystic ovarian syndrome) 05/06/2018 08/10/2019 Dysplasia of cervix, low grade (MANDY 1) 10/28/2011 08/10/2019 Overview: s/p cryotherapy 07/2012; neg pap since Pap Hx: 09/2008 neg pap 09/2009 neg pap 04/08 ASCUS +HRHPV 09/2011 LSIL 10/2011 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 07/2012 s/p cryotherapy 09/2012 neg pap 12/2012 neg pap 04/2018 neg pap documented as of this encounter (statuses as of 11/27/2022) [facility]-09-2021 History of Past illness Narrative* Problem Noted Date Diagnosed Date Resolved Date PROM (premature rupture of membranes) 03/07/2021 03/10/2021 Overview: -PROM for clear fluid at 2230 -Plan for repeat section -Gentamycin and clindamycin due to PCN allergy -TxA -SCD's ordered -Spinal anesthesia Polyhydramnios in third trimester 09/28/2019 10/06/2019 Overview: -VIRGEN on 09/27 Insulin controlled gestation al diabetes mellitus (GDM) in third trimester 09/17/20192019 Overview: -GDMA2 -Measures her blood sugars 4x per day: fasting 82-95 , B 115, L 115, D 120 -Insulin regimen was recently adjusted: -10units of Humalog in the morning, 8u at lunch, 7u at dinner, and 20units NPH QHS -Blood glucose 88 on admission Abdominal pain 08/20/2019 09/23/2019 Overview: -Patient appears comfortable on exam -Udip showing signs of dehydration with presence of ketones and protein -Thus patient's abdominal discomfort likely due to her dehydration -Patient's pain subjectively improved with PO hydration in the OB ED -Encouraged regular hydration at home Gestational diabetes mellitus, class A1 08/10/2019 09/28/2019 Overview: Insulin started 08/10/2019 Family history of thyroid disease 2018 08/10/2019 PCOS (polycystic ovarian syndrome) 05/06/2018 08/10/2019 Dysplasia of cervix, low grade (MANDY 1) 10/28/2011 08/10/2019 Overview: s/p cryotherapy 07/2012; neg pap since Pap Hx: 09/2008 neg pap 09/2009 neg pap 04/08 ASCUS +HRHPV 09/2011 LSIL 10/2011 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 07/2012 s/p cryotherapy 09/2012 neg pap 12/2012 neg pap 04/2018 neg pap documented as of this encounter (statuses as of 11/29/2022) [facility]-09-2021 History of Past illness Narrative* Problem Noted Date Diagnosed Date Resolved Date PROM (premature rupture of membranes) 03/07/2021 03/10/2021 Overview: -PROM for clear fluid at 2230 -Plan for repeat section -Gentamycin and clindamycin due to PCN allergy -TxA -SCD's ordered -Spinal anesthesia Polyhydramnios in third trimester 09/28/2019 10/06/2019 Overview: -VIRGEN on 09/27 Insulin controlled gestation al diabetes mellitus (GDM) in third trimester 09/17/20192019 Overview: -GDMA2 -Measures her blood sugars 4x per day: fasting 82-95 , B 115, L 115, D 120 -Insulin regimen was recently adjusted: -10units of Humalog in the morning, 8u at lunch, 7u at dinner, and 20units NPH QHS -Blood glucose 88 on admission Abdominal pain 08/20/2019 09/23/2019 Overview: -Patient appears comfortable on exam -Udip showing signs of dehydration with presence of ketones and protein -Thus patient's abdominal discomfort likely due to her dehydration -Patient's pain subjectively improved with PO hydration in the OB ED -Encouraged regular hydration at home Gestational diabetes mellitus, class A1 08/10/2019 09/28/2019 Overview: Insulin started 08/10/2019 Family history of thyroid disease 2018 08/10/2019 PCOS (polycystic ovarian syndrome) 05/06/2018 08/10/2019 Dysplasia of cervix, low grade (MANDY 1) 10/28/2011 08/10/2019 Overview: s/p cryotherapy 07/2012; neg pap since Pap Hx: 09/2008 neg pap 09/2009 neg pap 04/08 ASCUS +HRHPV 09/2011 LSIL 10/2011 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 07/2012 s/p cryotherapy 09/2012 neg pap 12/2012 neg pap 04/2018 neg pap documented as of this encounter (statuses as of 12/20/2022) [facility]11-09-2021 History of Past illness Narrative* Problem Noted Date Diagnosed Date Resolved Date PROM (premature rupture of membranes) 03/07/2021 03/10/2021 Overview: -PROM for clear fluid at 2230 -Plan for repeat section -Gentamycin and clindamycin due to PCN allergy -TxA -SCD's ordered -Spinal anesthesia Polyhydramnios in third trimester 09/28/2019 10/06/2019 Overview: -VIRGEN on 09/27 Insulin controlled gestation al diabetes mellitus (GDM) in third trimester 09/17/20192019 Overview: -GDMA2 -Measures her blood sugars 4x per day: fasting 82-95 , B 115, L 115, D 120 -Insulin regimen was recently adjusted: -10units of Humalog in the morning, 8u at lunch, 7u at dinner, and 20units NPH QHS -Blood glucose 88 on admission Abdominal pain 08/20/2019 09/23/2019 Overview: -Patient appears comfortable on exam -Udip showing signs of dehydration with presence of ketones and protein -Thus patient's abdominal discomfort likely due to her dehydration -Patient's pain subjectively improved with PO hydration in the OB ED -Encouraged regular hydration at home Gestational diabetes mellitus, class A1 08/10/2019 09/28/2019 Overview: Insulin started 08/10/2019 Family history of thyroid disease 2018 08/10/2019 PCOS (polycystic ovarian syndrome) 05/06/2018 08/10/2019 Dysplasia of cervix, low grade (MANDY 1) 10/28/2011 08/10/2019 Overview: s/p cryotherapy 07/2012; neg pap since Pap Hx: 09/2008 neg pap 09/2009 neg pap 04/08 ASCUS +HRHPV 09/2011 LSIL 10/2011 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 07/2012 s/p cryotherapy 09/2012 neg pap 12/2012 neg pap 04/2018 neg pap documented as of this encounter (statuses as of 01/16/2023) [facility]11-09-2021 History of Past illness Narrative* Problem Noted Date Diagnosed Date Resolved Date PROM (premature rupture of membranes) 03/07/2021 03/10/2021 Overview: -PROM for clear fluid at 2230 -Plan for repeat section -Gentamycin and clindamycin due to PCN allergy -TxA -SCD's ordered -Spinal anesthesia Polyhydramnios in third trimester 09/28/2019 10/06/2019 Overview: -VIRGEN on 09/27 Insulin controlled gestation al diabetes mellitus (GDM) in third trimester 09/17/20192019 Overview: -GDMA2 -Measures her blood sugars 4x per day: fasting 82-95 , B 115, L 115, D 120 -Insulin regimen was recently adjusted: -10units of Humalog in the morning, 8u at lunch, 7u at dinner, and 20units NPH QHS -Blood glucose 88 on admission Abdominal pain 08/20/2019 09/23/2019 Overview: -Patient appears comfortable on exam -Udip showing signs of dehydration with presence of ketones and protein -Thus patient's abdominal discomfort likely due to her dehydration -Patient's pain subjectively improved with PO hydration in the OB ED -Encouraged regular hydration at home Gestational diabetes mellitus, class A1 08/10/2019 09/28/2019 Overview: Insulin started 08/10/2019 Family history of thyroid disease 2018 08/10/2019 PCOS (polycystic ovarian syndrome) 05/06/2018 08/10/2019 Dysplasia of cervix, low grade (MANDY 1) 10/28/2011 08/10/2019 Overview: s/p cryotherapy 07/2012; neg pap since Pap Hx: 09/2008 neg pap 09/2009 neg pap 04/08 ASCUS +HRHPV 09/2011 LSIL 10/2011 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 07/2012 s/p cryotherapy 09/2012 neg pap 12/2012 neg pap 04/2018 neg pap documented as of this encounter (statuses as of 04/06/2023) [facility]11-09-2021 History of Past illness Narrative* Problem Noted Date Diagnosed Date Resolved Date PROM (premature rupture of membranes) 03/07/2021 03/10/2021 Overview: -PROM for clear fluid at 2230 -Plan for repeat section -Gentamycin and clindamycin due to PCN allergy -TxA -SCD's ordered -Spinal anesthesia Polyhydramnios in third trimester 09/28/2019 10/06/2019 Overview: -VIRGEN on 09/27 Insulin controlled gestation al diabetes mellitus (GDM) in third trimester 09/17/20192019 Overview: -GDMA2 -Measures her blood sugars 4x per day: fasting 82-95 , B 115, L 115, D 120 -Insulin regimen was recently adjusted: -10units of Humalog in the morning, 8u at lunch, 7u at dinner, and 20units NPH QHS -Blood glucose 88 on admission Abdominal pain 08/20/2019 09/23/2019 Overview: -Patient appears comfortable on exam -Udip showing signs of dehydration with presence of ketones and protein -Thus patient's abdominal discomfort likely due to her dehydration -Patient's pain subjectively improved with PO hydration in the OB ED -Encouraged regular hydration at home Gestational diabetes mellitus, class A1 08/10/2019 09/28/2019 Overview: Insulin started 08/10/2019 Family history of thyroid disease 2018 08/10/2019 PCOS (polycystic ovarian syndrome) 05/06/2018 08/10/2019 Dysplasia of cervix, low grade (MANDY 1) 10/28/2011 08/10/2019 Overview: s/p cryotherapy 07/2012; neg pap since Pap Hx: 09/2008 neg pap 09/2009 neg pap 04/08 ASCUS +HRHPV 09/2011 LSIL 10/2011 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 07/2012 s/p cryotherapy 09/2012 neg pap 12/2012 neg pap 04/2018 neg pap documented as of this encounter (statuses as of 04/09/2023) [facility]11-09-2021 History of Past illness Narrative* Problem Noted Date Diagnosed Date Resolved Date PROM (premature rupture of membranes) 03/07/2021 03/10/2021 Overview: -PROM for clear fluid at 2230 -Plan for repeat section -Gentamycin and clindamycin due to PCN allergy -TxA -SCD's ordered -Spinal anesthesia Polyhydramnios in third trimester 09/28/2019 10/06/2019 Overview: -VIRGEN on 09/27 Insulin controlled gestation al diabetes mellitus (GDM) in third trimester 09/17/20192019 Overview: -GDMA2 -Measures her blood sugars 4x per day: fasting 82-95 , B 115, L 115, D 120 -Insulin regimen was recently adjusted: -10units of Humalog in the morning, 8u at lunch, 7u at dinner, and 20units NPH QHS -Blood glucose 88 on admission Abdominal pain 08/20/2019 09/23/2019 Overview: -Patient appears comfortable on exam -Udip showing signs of dehydration with presence of ketones and protein -Thus patient's abdominal discomfort likely due to her dehydration -Patient's pain subjectively improved with PO hydration in the OB ED -Encouraged regular hydration at home Gestational diabetes mellitus, class A1 08/10/2019 09/28/2019 Overview: Insulin started 08/10/2019 Family history of thyroid disease 2018 08/10/2019 PCOS (polycystic ovarian syndrome) 05/06/2018 08/10/2019 Dysplasia of cervix, low grade (MANDY 1) 10/28/2011 08/10/2019 Overview: s/p cryotherapy 07/2012; neg pap since Pap Hx: 09/2008 neg pap 09/2009 neg pap 04/08 ASCUS +HRHPV 09/2011 LSIL 10/2011 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 07/2012 s/p cryotherapy 09/2012 neg pap 12/2012 neg pap 04/2018 neg pap documented as of this encounter (statuses as of 06/01/2023) [facility]11-09-2021 History of Past illness Narrative* Problem Noted Date Diagnosed Date Resolved Date PROM (premature rupture of membranes) 03/07/2021 03/10/2021 Overview: -PROM for clear fluid at 2230 -Plan for repeat section -Gentamycin and clindamycin due to PCN allergy -TxA -SCD's ordered -Spinal anesthesia Polyhydramnios in third trimester 09/28/2019 10/06/2019 Overview: -VIRGEN on 09/27 Insulin controlled gestation al diabetes mellitus (GDM) in third trimester 09/17/20192019 Overview: -GDMA2 -Measures her blood sugars 4x per day: fasting 82-95 , B 115, L 115, D 120 -Insulin regimen was recently adjusted: -10units of Humalog in the morning, 8u at lunch, 7u at dinner, and 20units NPH QHS -Blood glucose 88 on admission Abdominal pain 08/20/2019 09/23/2019 Overview: -Patient appears comfortable on exam -Udip showing signs of dehydration with presence of ketones and protein -Thus patient's abdominal discomfort likely due to her dehydration -Patient's pain subjectively improved with PO hydration in the OB ED -Encouraged regular hydration at home Gestational diabetes mellitus, class A1 08/10/2019 09/28/2019 Overview: Insulin started 08/10/2019 Family history of thyroid disease 2018 08/10/2019 PCOS (polycystic ovarian syndrome) 05/06/2018 08/10/2019 Dysplasia of cervix, low grade (MANDY 1) 10/28/2011 08/10/2019 Overview: s/p cryotherapy 07/2012; neg pap since Pap Hx: 09/2008 neg pap 09/2009 neg pap 04/08 ASCUS +HRHPV 09/2011 LSIL 10/2011 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 07/2012 s/p cryotherapy 09/2012 neg pap 12/2012 neg pap 04/2018 neg pap documented as of this encounter (statuses as of 06/18/2023) [facility]11-09-2021 History of Past illness Narrative* Problem Noted Date Diagnosed Date Resolved Date PROM (premature rupture of membranes) 03/07/2021 03/10/2021 Overview: -PROM for clear fluid at 2230 -Plan for repeat section -Gentamycin and clindamycin due to PCN allergy -TxA -SCD's ordered -Spinal anesthesia Polyhydramnios in third trimester 09/28/2019 10/06/2019 Overview: -VIRGEN on 09/27 Insulin controlled gestation al diabetes mellitus (GDM) in third trimester 09/17/20192019 Overview: -GDMA2 -Measures her blood sugars 4x per day: fasting 82-95 , B 115, L 115, D 120 -Insulin regimen was recently adjusted: -10units of Humalog in the morning, 8u at lunch, 7u at dinner, and 20units NPH QHS -Blood glucose 88 on admission Abdominal pain 08/20/2019 09/23/2019 Overview: -Patient appears comfortable on exam -Udip showing signs of dehydration with presence of ketones and protein -Thus patient's abdominal discomfort likely due to her dehydration -Patient's pain subjectively improved with PO hydration in the OB ED -Encouraged regular hydration at home Gestational diabetes mellitus, class A1 08/10/2019 09/28/2019 Overview: Insulin started 08/10/2019 Family history of thyroid disease 2018 08/10/2019 PCOS (polycystic ovarian syndrome) 05/06/2018 08/10/2019 Dysplasia of cervix, low grade (MANDY 1) 10/28/2011 08/10/2019 Overview: s/p cryotherapy 07/2012; neg pap since Pap Hx: 09/2008 neg pap 09/2009 neg pap 04/08 ASCUS +HRHPV 09/2011 LSIL 10/2011 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 07/2012 s/p cryotherapy 09/2012 neg pap 12/2012 neg pap 04/2018 neg pap documented as of this encounter (statuses as of 06/24/2023) [facility]11-09-2021 NoteHNO ID: [id number] Author: Alexa Joiner DO Service: Obstetrics Author Type: Resident Type: Progress Notes Filed: 03/07/2021 11:23 AM Note Text: In to evaluate patient for decreased urinary output since her time of section. She had her c/s at 0505 this morning and has been sleeping intermittently throughout the morning. She is tolerating po intake. Denies shortness of breath, dizziness, chest pain, or lightheadedness. She rates her pain 06/08. O: BP 108/65 Pulse 76 Temp 36.5 ?C (97.7 ?F) (Temporal) Resp 18 Ht 154.9 cm (5' 1 ) Wt 97.5 kg (215 lb) LMP 06/12/2020 SpO2 100% Unknown BMI 40.62 kg/m? Gen: WDWN, NAD, comfortable appearing Abd: soft, fundus firm, nontender to palpation, nondistended, bandage in placed c/d/i Ext: no calf tenderness Duvall catheter in place A/P: 30 yo POD#0 RLTCS # Decreased urinary output UOP 25 cc/hr since time of delivery, recently 12.5 cc/hr Tolerating po intake VSS Benign abdominal exam Plan for 1 L LR bolus and encouraged increase in po hydration I/O q4h Discussed with Dr. Angel Joiner DO, PGY-3 Obstetrics and Gynecology [id number] NoteHNO ID: [id number] Author: Bharath Treviño APRN.CRNA Service: Anesthesiology Author Type: Nurse Bb Shot Packer Type: Anesthesia Procedure Notes Filed: 03/07/2021 4:58 AM Note Text: Attestation signed by Diogo Moy MD at 03/07/2021 6:34 AM present ANESTHESIOLOGY PROCEDURE NOTE Spinal Block General Information Procedure Start Time/Medication Administration: 03/07/2021 4:44 AM Patient location during procedure: OR Timeout Performed Pre-procedure: timeout performed Patient identity confirmed: arm band and patient Reason for Block: primary surgical anesthetic Staffing COMPLIANCE COUNSEL: Bharath Treviño APRN.CRNA Other anesthesia staff/rotator: Bharath Treviño APRN.COMPLIANCE COUNSEL Performed by: EFREN Preparation Sterility Preparation: hand hygiene performed prior to procedure, surgical cap used, mask used, sterile drape used during line insertion, skin prep agent completely dried prior to procedure Site Prep: Betadine Procedure Details Patient Position: sitting Ultrasound Guided: No Monitoring: Pulse Ox and NIBP Approach: Midline Location: L3-4 Injection Technique: single-shot Needle Needle Type: pencil-tip Needle Gauge: 24 G Needle Length: 3.5 in Assessment Sensory Level: T8 Events: tolerated well Medications Administered Morphine (PF) injection (ASTRAMORPH), 0.2 mg bupivacaine-dextrose 0.75 % (7.5 mg/mL) injection (SENSORCAINE MPF SPINAL), 1.8 mL SIGNATURE: Bharath Treviño APRN.COMPLIANCE COUNSEL PATIENT NAME: Karen Fernandez DATE: March 07, 2021 TIME: 4:56 AM [facility]: [id number] NoteHNO ID: [id number] Author: Alexa Joiner DO Service: Obstetrics Author Type: Resident Type: Progress Notes Filed: 03/05/2021 5:47 AM Note Text: Cervix rechecked after 2+ hours and remains fingertip/40/-3. Patient more comfortable after Morphine and Zofran. Tracing Category I FHT, reactive, q2-4min. Reviewed if contractions worsen, or if she experiences pain at her old incision to immediately represent for evaluation. Also reviewed decreased movement, vaginal bleeding, and leakage of fluid precautions. Patient to follow-up this in the office. Discussed with Dr. Bishop and Dr. Han Joiner DO, PGY-3 Obstetrics and Gynecology [facility]ager [id number] NoteHNO ID: [id number] Author: Mayda Bishop MD Service: Nursing Author Type: Physician Type: Procedures Filed: 03/05/2021 6:55 AM Note Text: OBSTETRICS NST SUMMARY SERVICE DATE: March 05, 2021 The patient is a 30 year old female, , who is at 38w0d with an COREY of 03/19/2021, by Last Menstrual Period dating method. NST OBJECTIVE FINDINGS PER NURSE: Start Time: 344 (03/05/21414 : Michelle Kelly RN) Complete Time: 414 (03/05/21414 : Michelle Klely RN) Indications: Other: Comment (r/o labor) (03/05/21414 : Michelle Kelly RN) Patient Reason For: check on baby/ look at contractions (03/05/21414 : Michelle Kelly RN) NST Explanation: Procedure Explained;Monitor Explained;Verbalizes Understanding (03/05/21414 : Michelle Kelly RN) Acoustic Stimulator: No (03/05/21414 : Michelle Kelly RN) Interventions: MONITORING/ASSESSMENT: Baseline: 125 bpm (03/05/21414 : Michelle Kelly RN) Variability: Moderate (6-25 bpm) (03/05/21414 : Michelle Kelly RN) Accelerations: Present (03/05/21414 : Michelle Klely RN) Decelerations: Decelerations: None (03/05/21414 : Michelle Kelly RN) Decel Frequency: Intermittent (03/05/21299 : Michelle Kelly RN) Contractions: Irregular (03/05/21414 : Michelle Kelly RN) Frequency: 1-6 (03/05/21414 : Michelle Kelly RN) Above information forwarded to Dr. Bishop (03/05/21 0415 : Michelle Kelly RN) for final review and interpretation. SIGNATURE: Michelle Kelly RN PATIENT NAME: Karen Fernandez DATE: March 05, 2021 TIME: 4:19 AM PROVIDER INTERPRETATION: Reactive SIGNATURE: Mayda Bishop MD DATE: March 05, 2021 [facility]: 6:[facility] NoteHNO ID: [id number] Author: Alexa Joiner DO Service: Obstetrics Author Type: Resident Type: Progress Notes Filed: 03/05/2021 3:52 AM Note Text: Attestation signed by Mayda Bishop MD at 03/05/2021 6:58 AM (Updated) Attending Note I evaluated the patient and personally participated in the harry components. I agree with the resident's findings and plan with the following revisions and/or additions: Patient states that the contractions are inconsistent in timing, duration, and intensity. Reviewed expected course of labor with increasingly regular contractions. Return immediately if worsening pain, bleeding, decreased FM, or incisional pain. Has an active 17 month old who does not nap who keeps her on her feet Reassuring tracing throughout Signature: Mayda Bishop MD Date: 03/05/2021 Time: 6:55 AM OBSTETRICS OB ED PROGRESS NOTE SERVICE DATE: March 05, 2021 SERVICE TIME: 3:28 AM Subjective Patient's stated reason for arrival: contractions CHIEF COMPLAINT: Contractions HISTORY OF THE PRESENT ILLNESS: The patient is a 30 year old female, , who is at 38w0d with an COREY of 03/19/2021, by Last Menstrual Period dating method. Patient is here complaining of q5 min contractions. Good movement. Denies vaginal bleeding., Denies leaking of fluid. Previously evaluated on 03/01 with contractions and ruled out. Denies pain at her incision. She is currently taking Tyelnol for the contractions with minimal relief. She is finding it difficult to sleep with the contractions. Denies dysuria, flank pain, fever, or chills. PAST MEDICAL HISTORY Diagnosis Date - Asthma - Depression anxiety per pt - Endometriosis - PCOS (polycystic ovarian syndrome) - S/P x2 PAST SURGICAL HISTORY Procedure Laterality Date - ANESTH, SECTION - SECTION HX 08/31/2008, 09/2019 x2 - CRYOCAUTERY OF CERVIX 07/2012 - IUD REMOVAL 2009 was in lower uterine segment - LAPAROSCOPY, APPENDECTOMY 06/2011 (per pt-endometriosis excision- no record of this on record review) and appy; Dr. Nava - TONSILLECTOMY HX age 6 FAMILY HISTORY Problem Relation Age of Onset - Thyroid Mother hypothyroid - other (fibroid) Mother uterine - other (thyroidectomy) Mother - Diabetes Maternal Grandmother type 2 - Diabetes Paternal Grandmother type 2 - Breast Cancer Other 2 maternal great aunts w/ breast cancer - Thyroid Sister hypothyroid - Asthma Father Obstetric History T2 L2 SAB3 IAB0 Ectopic1 Multiple0 Live Births2 Comment: 1 ectopic tubal at 7 weeks per pt REVIEW OF SYSTEMS: The remainder of the review of systems is negative. Objective LAST VITALS: Pulse BP Resp O2 Sat Temp 105 120/85 21 97 % 36.1 ?C (97 ?F) Pain Score Trend (last 4 values) 03/05/21 0241 Pain Level: 8 HT/WT/BMI: Height Weight BMI 154.9 cm (5' 1 ) 97.5 kg (215 lb) 40.62 PHYSICAL EXAM: General: WD, WN, uncomfortable Abdomen: soft, nontender, no masses, no incision tenderness Uterus: soft, NT Extremities: no edema Normal external genitalia, Normal urethral meatus CERVICAL EXAM: Dilation: Fingertip (03/05/21303 : Alexa Joiner DO) cm Station: -3 (03/05/21303 : Alexa Joiner DO) Effacement: 40 (03/05/21 0318 : Alexa Joiner DO) % MONITORING/ASSESSMENT: NST with discrete interpretation : MONITORING/ASSESSMENT: Baseline: 150 Variability: moderate Accelerations: present Decelerations: absent Contractions: q5 min NST INTERPRETATION: NST Interpretation: reactive FHR Category: Cat 1 LABS Diagnostic tests reviewed for today's visit: Most recent labs Assessment/Plan 30 year old EGA:38w0d. Active Hospital Problems Diagnosis Date Noted - Threatened labor at term 03/01/2021 Overview Note: Previously evaluated on 03/01 for contractions Cervix fingertip/40/-3 Plan for repeat check in 2 hours Cat 1, reactive, q5 min contractions Plan for morphine 6 mg and Zofran 4 mg - History of delivery 10/03/2019 Overview Note: History of for cephalopelvic disportion x2 Plan for repeat Scheduled 03/[address] Bishop SIGNATURE: Alexa Joiner DO PATIENT NAME: Karen Fernandez DATE: March 05, 2021 TIME: 3:28 AM [facility] [id number] Note HNO ID: [id number] Author: Christen Che APRN.CNP Service: Obstetrics Author Type: Nurse Practitioner Type: Progress Notes Filed: 03/01/2021 11:18 AM Note Text: The patient is a 30 year old female, , who is at 37w3d with an COREY of 03/19/2021, by Last Menstrual Period dating method. Patient is here complaining of contractions. OB history complicated by history of 2 previous C-Sections Active Hospital Problems Diagnosis Date Noted - Threatened labor at term 03/01/2021 Overview Note: Cervix: FT/20%/-3 Cervix remains the same after 2 hours of walking in OB ED Patient's level of discomfort increased to 7-8/10 mostly due to back discomfort Patient declined tylenol here Given pharmacologic and non pharmacologic pain relief options Given strict precautions as to when to return Patient is scheduled for a repeat CS on March 14. D/W Dr.Biats Christen Che APRN.INFORMATION BROKER 03/01/2021 11:16 [facility]11-03-2021 NoteHNO ID: [id number] Author: Janine Spencer RN Service: OB Observation Author Type: Registered Nurse Type: Procedures Filed: 03/01/2021 9:23 AM Note Text: Attestation signed by Angela Gaspar MD at 03/01/2021 9:29 AM NST SUMMARY PROVIDER ASSESSMENT AND INTERPRETATION Karen Fernandez is a 30 year old female, , who is at 37w3d with an COREY of 03/19/2021, by Last Menstrual Period dating method. Indications for NST: Labor Baseline: 145 Variability: Moderate Accelerations: Present 15 X 15 Decelerations: None Contractions: TOCO: Irregular Interpretation: Category I and Reactive SIGNATURE: Angela Gaspar MD OBSTETRICS NST SUMMARY SERVICE DATE: March 01, 2021 The patient is a 30 year old female, , who is at 37w3d with an COREY of 03/19/2021, by Last Menstrual Period dating method. NST OBJECTIVE FINDINGS PER NURSE: Start Time: 818 Complete Time: 839 Indications: Patient Reason For: NST Explanation: Acoustic Stimulator: none Interventions: none MONITORING/ASSESSMENT: Baseline: 145 bpm (03/01/21899 : Janine Spencer RN) Variability: Moderate (6-25 bpm) (03/01/21899 : Janine Spencer RN) Accelerations: Present (03/01/21899 : Janine Spencer RN) Decelerations: Decelerations: None (03/01/21899 : Janine Spencer RN) Contractions: Irregular (03/01/21899 : Janine Spencer RN) Frequency: 1.5-8 (03/01/21899 : Janine Spencer RN) Above information forwarded to for final review and interpretation. SIGNATURE: Janine Spencer RN PATIENT NAME: Karen Fernandez DATE: March 01, 2021 TIME: 9:22 [facility]11-03-2021 NoteHNO ID: [id number] Author: Christen Che APRN.INFORMATION BROKER Service: Obstetrics Author Type: Nurse Practitioner Type: Progress Notes Filed: 03/01/2021 9:29 AM Note Text: OBSTETRICS OB ED PROGRESS NOTE SERVICE DATE: March 01, 2021 SERVICE TIME: 899 Subjective Patient's stated reason for arrival: contractions CHIEF COMPLAINT: Contractions HISTORY OF THE PRESENT ILLNESS: The patient is a 30 year old female, , who is at 37w3d with an COREY of 03/19/2021, by Last Menstrual Period dating method. Patient is here complaining of contractions that started early this morning becoming increasingly more uncomfortable,6/10, with complaint of lower back discomfort 8/10. Good movement, complaint of pink spotting, unsure if leaking fluid or not. PAST MEDICAL HISTORY Diagnosis Date - Asthma - Depression anxiety per pt - Endometriosis - PCOS (polycystic ovarian syndrome) - S/P x2 PAST SURGICAL HISTORY Procedure Laterality Date - ANESTH, SECTION - SECTION HX 08/31/2008, 09/2019 x2 - CRYOCAUTERY OF CERVIX 07/2012 - IUD REMOVAL 2009 was in lower uterine segment - LAPAROSCOPY, APPENDECTOMY 06/2011 (per pt-endometriosis excision- no record of this on record review) and appy; Dr. Nava - TONSILLECTOMY HX age 6 Obstetric History T2 L2 SAB3 TAB0 Ectopic1 Multiple0 Live Births2 Comment: 1 ectopic tubal at 7 weeks per pt REVIEW OF SYSTEMS: PAIN ASSESSMENT: discomfort ranges from 6-8/10 due to contractions GENERAL: No weight loss, malaise or fevers. HEENT: Patient has migraines THYROID: NO Goiter, pain or significant neck swelling RESPIRATORY: denies covid symptoms CARDIOVASCULAR: Negative for chest pain, leg swelling, hypertension, CHF or palpitations GI: No nausea, vomiting, or diarrhea : No history of dysuria, frequency or incontinence AIRPLANE DISPATCHER: Negative for abnormal vaginal bleeding, abnormal vaginal discharge MUSCULOSKELETAL: complaint of lower back pain with contractions Objective LAST VITALS: Pulse BP Resp O2 Sat Temp 107 126/83 18 36.6 ?C (97.9 ?F) Pain Score Trend (last 4 values) 03/01/21 0820 Pain Level: 8 HT/WT/BMI: Height Weight BMI 154.9 cm (5' 0.98 ) 95.3 kg (210 lb) 39.7 PHYSICAL EXAM: General: WD, WN, obese, NAD Heart: RR, S1, S2 Lungs: clear to auscultation Abdomen: soft, nontender, no masses Uterus: soft, NT, gravid Extremities: tr edema Speculum exam: negative pooling, nitrazine, and ferning Cervix FT/20%/-3 CERVICAL EXAM: Dilation: Fingertip (03/01/21902 : Christen Che APRN.CNP) cm Station: -3 (03/01/21902 : Christen Che APRN.CNP) Effacement: 20 (03/01/21902 : Christen Che APRN.CNP) % Presentation: MONITORING/ASSESSMENT: Baseline 130's/mod/+accels/no decels [place]: every 4-6 mins, palpate moderate Category 1 FHR tracing LABS Diagnostic tests reviewed for today's visit: reviewed records and lab results Assessment/Plan 30 year old EGA:37w3d. Threatened labor at term Principal Problem: Active Hospital Problems Diagnosis Date Noted - Threatened labor at term 03/01/2021 Overview Note: Cervix: FT/20%/-3 Recheck @ 1100 Up to walk in the halls Plan of care discussed with: Dr. Gaspar, patient and nurse SIGNATURE: Christen Che APRN.CNP PATIENT NAME: Karen Fernandez DATE: March 01, 2021 TIME: 9:15 AM PAGER/CONTACT #[phone] NoteHNO ID: [id number] Author: Alexa Nj MD Service: Obstetrics Author Type: Resident Type: Progress Notes Filed: 01/10/2021 4:19 AM Note Text: Interval note 4 hours of CEFM reviewed, no contractions, FHT Category I. She remains asymptomatic. Safe to go home. F/u this week in office. Return precautions reviewed. Dr. Scruggs in agreement. CBC and Fibrinogen appropriate. CBC, Coags, BMP, Mg, Phos Recent Labs 01/09/21 2317 WBC 11.70* HB 9.9* HCT 30.7* PLT 287 Fibrinogen: [phone] Alexa Nj MD Pager # [phone] 01/10/2021 4:18 [facility]09-14-2021 NoteHNO ID: [id number] Author: Alexa Nj MD Service: Obstetrics Author Type: Resident Type: Progress Notes Filed: 01/09/2021 11:33 PM Note Text: OBSTETRICS OB ED PROGRESS NOTE SERVICE DATE: January 09, 2021 SERVICE TIME: 10:19 PM Subjective HISTORY OF THE PRESENT ILLNESS: The patient is a 30 year old female, , who is at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
[2023-07-07] MEDS: 0.9% Normal Saline (1000mL) 1,000 ML 1000 ML IV (03:45)
[2023-07-07] MEDS: Ketorolac 15 MG/ML Vial IV (03:45)
[2023-07-07 04:08] LABS: Anion Gap 9 (5-15); BUN 7 mg/dL (7-18); BUN/Creat Ratio 14.7 RATIO (10-20); Calcium,Total 8.8 mg/dL (8.5-10.1); Chloride 104 mmol/L (98-107); Creatinine, Serum 0.48 mg/dL (0.55-1.02); EST Glomerular Filtration Rate 158 mL/min (>60); Est Glom Filt Rate - Afr Amer 192 mL/min (>60); Estimated Creatinine Clearance 188.59 ml/min; Glucose 143 mg/dL (74-106); Potassium 3.8 mmol/L (3.5-5.1); Sodium Level 137 mmol/L (136-145); Troponin-I HS (w/2H Reflex) 4 pg/mL (3.0-54.0)
[2023-07-07 04:10] LABS: BNP,B-Type NATRIURETIC PEPTIDE 24.4 pg/mL (0-100)
[2023-07-07 05:36] LABS: Reflex Troponin-HS? (from REC) Y
[2023-07-07 06:11] VITALS: BP 110/66; PULSE 98; RESP 18; O2SAT 94
[2023-07-07 06:30] LABS: Troponin-I HS 4 pg/mL (3.0-54.0)
[2023-07-07 06:34] VITALS: BP 109/62; PULSE 93; RESP 16; TEMP 36.6; O2SAT 97
== END 2023-07-07 06:35 | disposition home or self-care (01) ==
PROVIDERS: Emergency Provider Emergency Medicine; PCP Internal Medicine; Visit Provider Emergency Medicine
DX: U07.1 COVID-19 (principal); J06.9 Acute upper respiratory infection, unspecified; R00.0 Tachycardia, unspecified; R06.82 Tachypnea, not elsewhere classified
CPT/HCPCS: 71045; 80048; 83880; 84484; 85025; 87631; 87651; 93005; 96361; 96374; 99283; J7030; A4216